=== PATIENT | female | born 1970 | race Hispanic/Latino ===

== ENCOUNTER 2019-05-01 09:15 | Emergency (ER) | payer OTHER, SELFPAY ==
--- NOTE | ~2019-05-01 | XR_ITS ---
EXAMINATION: XR chest 2V DATE: 05/01/2019 09:59 INDICATION: Cough, fever, and shortness of breath. TECHNIQUE: Frontal and lateral views of the chest were obtained. COMPARISON: Chest 2 views 01/06/2018 FINDINGS: Again seen is mild scarring at the lung apices. No pleural effusion or pneumothorax. The he art size is normal. IMPRESSION: 1. Stable mild scarring at the lung apices. Reviewed, dictated and finalized at location A. CLEANER
[2019-05-01 09:22] VITALS: BP 129/62; PULSE 89; RESP 18; TEMP 36.2; O2SAT 100
--- NOTE | 2019-05-01 10:33 | ED.URI ---
HPI - URI/Sore Throat General Chief Complaint: Upper Respiratory Infection Stated Complaint: fever/aches/back pain Time Seen by Provider: 05/01/19 09:25 Source: patient Mode of arrival: ambulatory Limitations: no limitations History of Present Illness HPI Narrative: Patient presents with chief complaint of 2 weeks of progressively worsening cough that is productive of green phlegm. Patient also reports intermittent fever and body aches. Patient states that her daughter was sick as well but her symptoms have resolved and she is improved. Patient states that she has been taking Claritin and NyQuil at home without resolution of her symptoms. Patient denies shortness of breath, chest pain, nausea, vomiting, diarrhea. Patient reports having diabetes but denies history of COPD or asthma. Patient states she did not receive a flu shot this year. Related Data Home Medications Medication Instructions Recorded Confirmed atorvastatin 40 mg PO DAILY 05/01/19 ezetimibe 10 mg PO DAILY 05/01/19 glimepiride 4 mg PO DAILY 05/01/19 lisinopril 5 mg PO DAILY 05/01/19 sitagliptin [Januvia] 100 mg PO DAILY 05/01/19 Allergies Allergy/AdvReac Type Severity Reaction Status Date / Time No Known Allergies Allergy Unverified 05/01/19 09:24 Review of Systems Review of Systems: Narrative: CONSTITUTIONAL: Reports fever, body aches Denies chills or sweats. EYES: Denies visual changes, redness, or discharge. ENT: Reports rhinorrhea, congestion, sore throat, denies otalgia. CARDIOVASCULAR: Denies chest pain, palpitations, or edema. RESPIRATORY: Reports cough denies dyspnea. GASTROINTESTINAL: Denies abdominal pain, nausea, vomiting, or diarrhea. GENITOURINARY: Denies dysuria or hematuria. SKIN: Denies rash or itching. MUSCULOSKELETAL: Denies back pain, joint pain, or myalgia. NEUROLOGIC: Denies headache, numbness, dizziness, or weakness. PSYCHIATRIC: Denies anxiety or depression. [facility] Past Medical History Medical History (Updated 05/01/19 @ 10:53 by Betsey Brewer PA-C) Diabetes Hypercholesteremia Social History Social History (Updated 05/01/19 @ 10:47 by Betsey Brewer PA-C) Smoking status: Never smoker Alcohol intake: never Substance use: never Exam Narrative: Exam Narrative: GENERAL: Well-appearing, well-nourished, and in no acute distress. HEAD: Normocephalic, atraumatic. EYES: PERRLA and EOMI. ENT: Nares clear, no rhinorrhea or epistaxis. Mucous membranes moist congested. Oropharynx without tonsillar hypertrophy exudate or other lesions. Bilateral TMs pearly xavier nonbulging. Hoarse voice. NECK: Supple. No adenopathy or masses. No carotid bruits or JVD CHEST: Clear to auscultation. No respiratory distress. No wheezes rales or rhonchi HEART: Regular rate and rhythm. No murmur heard. Normal peripheral pulses. EXTREMITIES: Normal range of motion. No edema. SKIN: Warm, dry, no rash. NEURO: No focal deficits. Alert and oriented x3. PSYCH: Normal mood and affect. Course Vital Signs Vital signs: Vital Signs Temperature 97.2 F L 05/01/19 09:22 Pulse Rate 89 05/01/19 09:22 Respiratory Rate 18 05/01/19 09:22 Blood Pressure 129/62 05/01/19 09:22 Pulse Oximetry 100 05/01/19 09:22 Temperature 97.2 F L 05/01/19 09:22 Pulse Rate 89 05/01/19 09:22 Respiratory Rate 18 05/01/19 09:22 Blood Pressure 129/62 05/01/19 09:22 Pulse Oximetry 100 05/01/19 09:22 MDM - URI/Sore Throat MDM Narrative Medical decision making narrative: Patient's flu, strep, chest x-ray was negative for any acute findings. Patient states she felt improved but then had symptoms represent 5-6 days ago with sneezing, tearing, hoarse voice, which is consistent with second viral illness with negative workup today. Patients vitals are stable. She does not have fever, dyspnea, or chest pain. There is no wheezing and she denies asthma, respiratoryillness, immunocompromised status, or COPD. There is no sinus tenderness or s
== END 2019-05-01 11:08 | disposition home or self-care (01) ==
PROVIDERS: Emergency Provider Family Medicine; PCP Physician Assistant
DX: J06.9 Acute upper respiratory infection, unspecified (principal); E11.9 Type 2 diabetes mellitus without complications; E78.00 Pure hypercholesterolemia, unspecified
CPT/HCPCS: 71046; 87081; 87804; 87880; 99283

== ENCOUNTER 2019-09-08 21:53 | Emergency (ER) | payer OTHER, SELFPAY ==
--- NOTE | ~2019-09-08 | XR_ITS ---
XR lumbar spine 2-3V 09/08/2019 23:35 Indication: Low back pain after recent fall Procedure: 3 views lumbar spine Comparison: No prior studies for comparison. Findings: Normal lumbar alignment. Vertebral body and disc heights are preserved. No evidence for spo ndylolisthesis. No acute fracture or traumatic malalignment. Pedicles intact. Impression: 1: No acute abnormality of the lumbar spine. Reviewed, dictated and finalized at location A. Impression: 1: No acute abnormality of the lumbar spine.
[2019-09-08 21:55] VITALS: BP 126/63; PULSE 93; RESP 19; TEMP 35.9; O2SAT 100
--- NOTE | 2019-09-08 22:07 | PC.NURSE ---
Pt denies hitting head or loc.
[2019-09-08] MEDS: KETOROLAC (*BKC) 60 MG/2 ML VIAL IM (23:12)
[2019-09-08 23:47] VITALS: RESP 18; O2SAT 99
--- NOTE | 2019-09-09 00:17 | ED.FALL ---
HPI - Fall General Chief Complaint: Fall Stated Complaint: FALL, BACK PAIN Time Seen by Provider: 09/08/19 23:36 History of Present Illness HPI Narrative: Patient is a 49-year-old female who presents ER with pain over her tailbone. She was mopping when she slipped on wet ground and fell onto her buttock. She has been able to ambulate. No numbness or tingling of her lower extremities or private parts. Went to make sure she was okay. Did not strike her head or lose consciousness. Related Data Home Medications Medication Instructions Recorded Confirmed atorvastatin 40 mg PO DAILY 05/01/19 09/08/19 glimepiride 4 mg PO DAILY 05/01/19 09/08/19 lisinopril 5 mg PO DAILY 05/01/19 calcium carbonate-vitamin D3 1 tablet PO DAILY 09/08/19 09/08/19 insulin glargine [Lantus Solostar 22 unit SUBCUT QID 09/08/19 09/08/19 U-100 Insulin] multivitamin [Daily-Benjamín] 1 tablet PO DAILY 09/08/19 09/08/19 Allergies Allergy/AdvReac Type Severity Reaction Status Date / Time No Known Allergies Allergy Verified 09/08/19 23:15 Review of Systems Constitutional: Constitutional: Denies chills, Denies fever(s) and Denies weakness Musculoskeletal: Musculoskeletal: Reports back pain, Denies joint swelling and Denies muscle cramps Neurologic: Denies syncope, Denies focal weakness and Denies numbness PMFSH Past Medical History Medical History (Updated 09/09/19 @ 00:22 by Barry Manzo MD) Diabetes Hypercholesteremia Surgical History Surgical History (Updated 09/09/19 @ 00:18 by Barry Manzo MD) No pertinent past surgical history Social History Social History (Updated 05/01/19 @ 10:47 by Betsey Brewer PA-C) Smoking status: Never smoker Alcohol intake: never Substance use: never Gender identity (if verbalized by the patient): Female Exam Narrative: Exam Narrative: GENERAL: Well-appearing, well-nourished, and in no acute distress. HEAD: Normocephalic, atraumatic. EXTREMITIES: Normal range of motion. No edema. Back: No midline tenderness of thoracic or lumbar spine. There is tenderness within the gluteal cleft near the tailbone. No visual evidence of trauma. SKIN: Warm, dry, no rash. NEURO: Alert and oriented x3. PSYCH: Normal mood and affect. Course Course Emergency Course: X-ray negative. Toradol for pain. Discharge home. Vital Signs Vital signs: Vital Signs Temperature 96.7 F L 09/08/19 21:55 Pulse Rate 93 09/08/19 21:55 Respiratory Rate 19 09/08/19 21:55 Blood Pressure 126/63 09/08/19 21:55 Pulse Oximetry 100 09/08/19 21:55 Temperature 96.7 F L 09/08/19 21:55 Pulse Rate 93 09/08/19 21:55 Respiratory Rate 18 09/08/19 23:47 Blood Pressure 126/63 09/08/19 21:55 Pulse Oximetry 99 09/08/19 23:47 MDM - Fall Lab Data Labs: UCG Bedside Result Negative Reference Range: Negative Imaging Data Radiologist's impression: ITS Impressions Lumbar Spine X-Ray 09/08/19 23:36 Impression: 1: No acute abnormality of the lumbar spine. Discharge Plan Discharge Clinical Impression: Contusion Patient Disposition: Home, Self-Care Condition: Stable Instructions: Contusion in Adults (ED) Additional Instructions: There is no fracture of your tailbone on x-ray. Return to the ER if you have increased pain in your back, you develop lower extremity weakness/numbness/paralysis, you have numbness or tingling in your private parts, or you are unable to control your ability to urinate/stool. Prescriptions: New ibuprofen 600 mg tablet 600 mg PO TID PRN (Reason: pain) Qty: 14 RF: 0 No Action atorvastatin 40 mg Tablet 40 mg PO DAILY RF: 0 glimepiride 4 mg Tablet 4 mg PO DAILY RF: 0 lisinopril 5 mg Tablet 5 mg PO DAILY RF: 0 multivitamin [Daily-Benjamín] Tablet 1 tablet PO DAILY RF: 0 Lantus Solostar U-100 Insulin 100 unit/mL (3 mL) insulin pen 22 unit SUBCUT QID RF: 0 calcium ca
[2019-09-09 00:48] VITALS: BP 100/50; PULSE 68; RESP 18; TEMP 36.6; O2SAT 100
== END 2019-09-09 00:50 | disposition home or self-care (01) ==
PROVIDERS: Emergency Provider Emergency Medicine; PCP Physician Assistant
DX: S30.0XXA Contusion of lower back and pelvis, initial encounter (principal); E11.9 Type 2 diabetes mellitus without complications; E78.00 Pure hypercholesterolemia, unspecified; Z79.4 Long term (current) use of insulin; W01.0XXA Fall on same level from slipping, tripping and stumbling without subsequent striking against object, initial encounter
CPT/HCPCS: 72100; 81025; 96372; 99283; J1885

== ENCOUNTER 2020-03-17 12:58 | Emergency (ER) | payer OTHER, SELFPAY ==
--- NOTE | ~2020-03-17 | XR_ITS ---
EXAMINATION: XR chest 1V portable INDICATION: Cough and back pain TECHNIQUE: Portable AP chest at 1440 hours COMPARISON: 05/01/2019 FINDINGS: There is a possible nodule in the right midlung zone. The left lung is clear. The cardiomed iastinal silhouette is normal. The visualized osseous structures are unremarkable. IMPRESSION: 1. Possible nodule of the right midlung zone. Further evaluation with CT of the chest is recommended. Reviewed, dictated and finalized at location A. 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
[2020-03-17 13:15] VITALS: BP 125/54; PULSE 78; RESP 18; TEMP 36.2; O2SAT 99
[2020-03-17 14:56] LABS: Add Urine Microscopic? YES; Appearance Urine Clear (Clear); Bilirubin Urine Negative (Negative); Blood Urine Negative (Negative); Color Urine Yellow (Yellow); Glucose Urine UA 3+ mg/dL (Negative); Ketones Urine Negative (Negative); Leukocyte Esterase Ur Negative LEU/UL (Negative); Mucus Urine Rare /lpf; Nitrate Urine Negative (Negative); Protein Urine Negative (Negative); RBC Urine 0-2 /hpf (0-2); Specific Grav Ur 1.018 (1.001-1.035); Squamous Epithelial Cell Urine Few /hpf (Few); Urobilinogen Urine Negative mg/dL (<2.0); WBC Urine 0-3 /hpf
--- NOTE | 2020-03-17 15:19 | ED.GENADULT ---
HPI - General Adult General Chief complaint: Back Pain/Injury Stated complaint: Back Pain, Body Sore Time Seen by Provider: 03/17/20 13:27 Source: patient Mode of arrival: ambulatory Limitations: no limitations History of Present Illness HPI narrative: Patient is a 49-year-old female who presents to emergency department for evaluation of URI symptoms that began over the weekend patient denies sick contacts nose congestion rhinorrhea cough with some mild discomfort to the right upper back patient denies vomiting diarrhea or other complaints has tried [id number] medications with minimal improvement is followed by Dr. Davis Cardona. Patient on arrival does not appear to be distressed Related Data Home Medications Medication Instructions Recorded Confirmed atorvastatin 40 mg PO DAILY 05/01/19 09/08/19 glimepiride 4 mg PO DAILY 05/01/19 09/08/19 lisinopril 5 mg PO DAILY 05/01/19 calcium carbonate-vitamin D3 1 tablet PO DAILY 09/08/19 09/08/19 insulin glargine [Lantus Solostar 22 unit SUBCUT QID 09/08/19 09/08/19 U-100 Insulin] multivitamin [Daily-Benjamín] 1 tablet PO DAILY 09/08/19 09/08/19 Allergies Allergy/AdvReac Type Severity Reaction Status Date / Time No Known Allergies Allergy Verified 03/17/20 13:26 Review of Systems Review of Systems: All systems reviewed & are unremarkable except as noted in HPI and below PMFSH Past Medical History Medical History Diabetes Hypercholesteremia Surgical History Surgical History No pertinent past surgical history Social History Social History Smoking status: Never smoker Alcohol intake: never Substance use: never Gender identity (if verbalized by the patient): Female Exam Narrative: Exam Narrative: GENERAL: Well-appearing, well-nourished, and in no acute distress. HEAD: Normocephalic, atraumatic. EYES: PERRLA and EOMI. ENT: Nares clear, no rhinorrhea or epistaxis. Mucous membranes moist. CHEST: Clear to auscultation. No respiratory distress. No wheezes rales or rhonchi HEART: Regular rate and rhythm. No murmur heard. Normal peripheral pulses. ABDOMEN: Soft, nontender, nondistended EXTREMITIES: Normal range of motion. No edema. SKIN: Warm, dry, no rash. NEURO: No focal deficits. Alert and oriented x3. Cranial nerves II through XII grossly intact PSYCH: Normal mood and affect. Course Course Emergency Course: Patient in the room no distress aware of case findings treatment plan diagnosis agreeing to follow-up as directed with primary care to obtain her COVID-19 results patient made aware that primary care is the person that can get her results and that she will not be able to with primary care assistance. Vital signs and ABCs intact and stable. Patient will be tested for Covid has been advised to self quarantine until she has received her results and was given reasons to return. Patient made aware of the nodule seen on chest x-ray and will follow with primary care to plan for CT imaging for further evaluation Vital Signs Vital signs: Vital Signs Temperature 97.2 F L 03/17/20 13:15 Pulse Rate 78 03/17/20 13:15 Respiratory Rate 18 03/17/20 13:15 Blood Pressure 125/54 L 03/17/20 13:15 Pulse Oximetry 99 03/17/20 13:15 Temperature 97.2 F L 03/17/20 13:15 Pulse Rate 78 03/17/20 13:15 Respiratory Rate 18 03/17/20 13:15 Blood Pressure 125/54 L 03/17/20 13:15 Pulse Oximetry 99 03/17/20 13:15 Medical Decision Making [facility] Narrative Medical decision making narrative: Patient with acute onset URI symptoms no pneumonia vital signs stable and intact no hypoxemia will be discharged after Covid testing for follow-up with primary care Vital Signs Vital Signs: Vital Signs Temperature 97.2 F L 03/17/20 13:15 Pulse Rate 78 03/17/20 13:15 Respiratory Rate 18
[2020-03-17 16:05] VITALS: BP 137/58; PULSE 80; RESP 19; O2SAT 100
[2020-03-17 22:46] LABS: SARS-CoV-2 RNA PCR Positive
== END 2020-03-17 16:09 | disposition home or self-care (01) ==
PROVIDERS: Emergency Medicine Emergency Medical Services; Emergency Provider Emergency Medicine; PCP Physician Assistant
DX: U07.1 COVID-19 (principal); J06.9 Acute upper respiratory infection, unspecified; R91.1 Solitary pulmonary nodule; E78.00 Pure hypercholesterolemia, unspecified; E11.9 Type 2 diabetes mellitus without complications; Z79.4 Long term (current) use of insulin
CPT/HCPCS: 71045; 81001; 99283; C9803; U0003; U0005

== ENCOUNTER 2021-03-24 13:53 | Emergency (ER) | payer OTHER, SELFPAY ==
--- NOTE | ~2021-03-24 | CT_ITS ---
EXAMINATION: CT abdomen pelvis wo con EXAM DATE: 03/24/2021 16:57 INDICATION: Diffuse back pain, suprapubic pain, hematuria. TECHNIQUE: Spiral CT of the abdomen and pelvis was performed without contrast. Axial, coronal and s agittal images of the abdomen and pelvis were reviewed. The dose-length product (DLP) for this exami nation was 890.91 mGy-cm. The exposure was tailored according to patient size (auto mA exposure cont rol), and iterative reconstruction (ASIR) was used as additional dose reduction technique. There is no prior study for comparison. FINDINGS: The liver, spleen, adrenal glands and pancreas are unremarkable. Gallbladder is unremarkab le. No biliary obstruction. There is no nephrolithiasis or hydronephrosis. There is a fluid density left renal 2 cm lesion likely cyst. The uterus is unremarkable. The bladder is unremarkable. Ther e is no retroperitoneal or pelvic lymphadenopathy. Small to moderate-sized umbilical fat-containing hernias. The appendix is normal. There is mild scattered colonic diverticulosis. There is no adjacent inflamm atory change to suggest diverticulitis. The stomach and small bowel are unremarkable. There is expec jared amount of colonic stool. No free intraperitoneal gas. The heart is normal in size. There are no pericardial or pleural effusions. The lung bases are unremarkable. There are no osteoblastic or osteolytic lesions identified. IMPRESSION: 1. No acute intra-abdominal findings. 2. Small to moderate-sized umbilical fat-containing hernia. 3. Mild scattered colonic diverticulosis. Reviewed, dictated and finalized at location B. 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
[2021-03-24 13:55] VITALS: BP 135/63; PULSE 78; RESP 14; TEMP 36.8; O2SAT 99
--- NOTE | 2021-03-24 15:20 | ED.FEMALEGU ---
HPI - Female Genitourinary General Chief complaint: Urogenital-Female Stated complaint: UTI Time Seen by Provider: 03/24/21 15:06 Source: patient Mode of arrival: ambulatory Limitations: no limitations History of Present Illness HPI Narrative: 50-year-old female with a history of DM presents to the ED with a 2-day history of mild dysuria, urinary frequency, and vulvar pruritus as well as a 5 to 6-day history of malaise fatigue, chills, decreased appetite, and bilateral thoracic back pain. Symptoms began shortly after starting Farxiga for DM. She is concerned about the possibility of UTI. She has also noticed a sore to the left vulvar region as well. She does have a history of genital herpes however manages this with daily acyclovir. No recent history of documented fever, vomiting, or gross hematuria. Related Data Home Medications Medication Instructions Recorded Confirmed atorvastatin 40 mg PO DAILY 05/01/19 09/08/19 glimepiride 4 mg PO DAILY 05/01/19 09/08/19 lisinopril 5 mg PO DAILY 05/01/19 calcium carbonate-vitamin D3 1 tablet PO DAILY 09/08/19 09/08/19 insulin glargine [Lantus Solostar 22 unit SUBCUT QID 09/08/19 09/08/19 U-100 Insulin] multivitamin [Daily-Benjamín] 1 tablet PO DAILY 09/08/19 09/08/19 Allergies Allergy/AdvReac Type Severity Reaction Status Date / Time No Known Allergies Allergy Verified 03/24/21 13:58 Review of Systems Review of Systems: CONSTITUTIONAL: Malaise/ fatigue. No fever. EYES: Denies visual changes, redness, or discharge. ENT: Denies rhinorrhea, congestion, sore throat, or otalgia. CARDIOVASCULAR: Denies chest pain, palpitations, or edema. RESPIRATORY: Denies cough or dyspnea. GASTROINTESTINAL: Denies abdominal pain, nausea, vomiting, or diarrhea. GENITOURINARY: Dysuria, urinary frequency, vulvar pruritus. Vulvar lesion SKIN: Denies rash or itching. MUSCULOSKELETAL: Thoracic back pain NEUROLOGIC: Denies headache, numbness, dizziness, or weakness. PSYCHIATRIC: Denies anxiety or depression. All systems reviewed & are unremarkable except as noted in HPI and below PMFSH Past Medical History Medical History Diabetes Hypercholesteremia Surgical History Surgical History No pertinent past surgical history Social History Social History Smoking status: Never smoker Alcohol intake: never Substance use: never Gender identity (if verbalized by the patient): Female Exam Narrative: GENERAL: Overweight, well-appearing female HEAD: Normocephalic, atraumatic. EYES: PERRLA and EOMI. ENT: Nares clear, no rhinorrhea or epistaxis. Mucous membranes moist. Oropharynx without tonsillar hypertrophy exudate or other lesions. Bilateral TMs pearly xavier nonbulging NECK: Supple. No adenopathy or masses. No carotid bruits or JVD CHEST: Clear to auscultation. No respiratory distress. No wheezes rales or rhonchi HEART: Regular rate and rhythm. No murmur heard. Normal peripheral pulses. ABDOMEN: Very minimal suprapubic tenderness palpation. No CVA tenderness. No guarding, rigidity, or rebound tenderness. EXTREMITIES: Normal range of motion. No edema. SKIN: Warm, dry, no rash. NEURO: No focal deficits. Alert and oriented x3. PSYCH: Normal mood and affect. Course Course Emergency Course: Patient presents to the ED with thoracic back pain, suprapubic abdominal pain, vulvar pruritus, and mild dysuria. She was concerned about the possibility of UTI secondary to Farxiga use. Urinalysis does show yeast but is not in keeping with infection. As a result CT was obtained as there was no clear explanation for her symptoms. This was also unremarkable. Suspect back pain is musculoskeletal. She was given Diflucan in the ED. She is to follow-up with PCP for further evaluation. Vital Signs Vital signs: Vital Sign
[2021-03-24 15:32] LABS: Add Urine Microscopic? YES; Amorphous Sediment Urine Few; Appearance Urine Cloudy (Clear); Bilirubin Urine Negative (Negative); Blood Urine Negative (Negative); Budding Yeast Urine Present /hpf; Color Urine Yellow (Yellow); Glucose Urine UA 3+ mg/dL (Negative); Ketones Urine Negative (Negative); Leukocyte Esterase Ur Negative LEU/UL (Negative); Nitrate Urine Negative (Negative); Protein Urine Negative (Negative); Specific Grav Ur 1.025 (1.001-1.035); Squamous Epithelial Cell Urine Few /hpf (Few); Urobilinogen Urine Negative mg/dL (<2.0); WBC Urine 0-3 /hpf
[2021-03-24] MEDS: FLUCONAZOLE 150 MG TABLET PO (16:41)
== END 2021-03-24 17:39 | disposition home or self-care (01) ==
PROVIDERS: Emergency Medicine; Emergency Provider Emergency Medicine; PCP Physician Assistant
DX: B37.3 Candidiasis of vulva and vagina (principal); M54.6 Pain in thoracic spine; E11.9 Type 2 diabetes mellitus without complications; E78.00 Pure hypercholesterolemia, unspecified; Z79.4 Long term (current) use of insulin; Z79.84 Long term (current) use of oral hypoglycemic drugs; K42.9 Umbilical hernia without obstruction or gangrene; K57.90 Diverticulosis of intestine, part unspecified, without perforation or abscess without bleeding
CPT/HCPCS: 74176; 81001; 81025; 99284; A9270

== ENCOUNTER 2021-10-31 21:57 | Inpatient (IN) | payer OTHER, SELFPAY ==
--- NOTE | ~2021-10-31 | XR_ITS ---
EXAMINATION: XR surgery orthopedic DATE: 11/01/2021 18:00 CDT INDICATION: ORIF RT ANKLE . TECHNIQUE: 3 fluoroscopic images of the right ankle were obtained during right ankle ORIF performed b y the surgeon. I was not present in the operating room. Fluoroscopy exposure time was 116.3 seconds. Cumulative dose was 5.96 mGy. COMPARISON: 10/31/2021 FINDINGS: Intramedullary jae fixation of the fibula 2 distal interlocking screws. Screw fixation of the medial malleolus and posterior malleolus. Internal fixation of the syndesmosis. Slight anterior angulation o f the distal fibular fragment. IMPRESSION: Fluoroscopic documentation of right ankle ORIF. Please refer to the operative note for complete proce dural details . Reviewed, dictated and finalized at location K. IMPRESSION: Fluoroscopic documentation of right ankle ORIF. Please refer to the operative n ote for complete procedural details .
--- NOTE | ~2021-10-31 | XR_ITS ---
EXAM: XR ankle RT 2V DATE: 10/31/2021 22:34 HISTORY: pain status post fall . COMPARISON: None available. FINDINGS: Subjectively decreased mineralization. Transverse, posteriorly displaced fracture of the m edial malleolus. Oblique, posteriorly displaced fracture of the lateral malleolus. Posteriorly displa ander fracture of the posterior malleolus. Posterior dislocation of the talus relative to the tibial pl afond. Soft tissue swelling about the ankle. IMPRESSION: Posterior tibiotalar dislocation. Trimalleolar ankle fracture. Reviewed, dictated and finalized at location K.
--- NOTE | ~2021-10-31 | XR_ITS ---
EXAMINATION: XR ankle RT min 3V DATE: 10/31/2021 23:41 INDICATION: Right ankle fracture status post reduction. TECHNIQUE: 3 views of right ankle were obtained. COMPARISON: Right ankle radiographs 10/31/2021 FINDINGS: There is a transverse fracture of medial malleolus. The distal fracture fragment demonstrat es 3 mm distraction. There is a coronal fracture of posterior malleolus with 2 mm step-off at the art icular surface. There is an oblique fracture of distal fibula with medial aspect of the fracture line to the level of the tibial plafond. The distal fracture fragment demonstrates 2 mm posterior displac ement. There is normal alignment at the ankle mortise. There is mild osteoarthritis of talonavicular joint. Cast material is noted. IMPRESSION: 1. Trimalleolar ankle fracture with improvement in alignment. Reviewed, dictated and finalized at location A.
--- NOTE | ~2021-10-31 | XR_ITS ---
EXAMINATION: XR knee RT 3V DATE: 10/31/2021 23:41 INDICATION: Right knee pain. TECHNIQUE: 3 views of right knee were obtained. COMPARISON: None. FINDINGS: Bone alignment is normal. No fracture. There is mild osteoarthritis of lateral and patellof emoral compartments characterized by tiny osteophytes. No joint space narrowing. No knee joint effusi on. IMPRESSION: 1. Mild right knee osteoarthritis. Reviewed, dictated and finalized at location A.
[2021-10-31 21:58] VITALS: RESP 12
[2021-10-31 22:03] VITALS: BP 119/54; PULSE 73; RESP 18; TEMP 36.9; O2SAT 98
[2021-10-31] MEDS: HYDROmorphone HCL INJ (*CRX) 1 MG/ML SYR IV PUSH ×2 (22:22→23:17)
[2021-10-31] MEDS: ONDANSETRON INJ 4 MG/2 ML VIAL IV PUSH (22:22)
--- NOTE | 2021-10-31 23:58 | ED.GENADULT ---
HPI - General Adult General Chief complaint: Extremity Injury, Lower Stated complaint: ANKLE INJURY WITH DEFORMITY Time Seen by Provider: 10/31/21 22:10 History of Present Illness HPI narrative: Patient 51-year-old female who presents the emergency department with chief complaint of right ankle pain. 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 The patient reports to an obvious deformity of her right ankle. Patient reports she has had a previous injury to her right upper extremity and just had the hardware removed fairly recently. The patient states that she had no loss of consciousness denies head injury reports no other significant past medical history other than hypertension. Related Data Home Medications Medication Instructions Recorded Confirmed atorvastatin 40 mg tablet 40 mg PO DAILY 05/01/19 09/08/19 glimepiride 4 mg tablet 4 mg PO DAILY 05/01/19 09/08/19 lisinopril 5 mg tablet 5 mg PO DAILY 05/01/19 calcium carbonate 600 mg-vitamin 1 tablet PO DAILY 09/08/19 09/08/19 D3 20 mcg (800 unit) tablet insulin glargine 100 unit/mL (3 22 unit subcut QID 09/08/19 09/08/19 mL) subcutaneous pen (Lantus Solostar U-100 Insulin) multivitamin (Daily-Benjamín tablet) 1 tablet PO DAILY 09/08/19 09/08/19 Allergies Allergy/AdvReac Type Severity Reaction Status Date / Time No Known Allergies Allergy Verified 03/24/21 13:58 Review of Systems Review of Systems: A 10 system review of systems was completed on the patient and is negative except for what is stated in the HPI. Nursing and ancillary documentation was reviewed. PMFSH Past Medical History Medical History Diabetes Hypercholesteremia Surgical History Surgical History No pertinent past surgical history Social History Social History Smoking status: Never smoker Alcohol intake: never Substance use: never Gender identity (if verbalized by the patient): Female Exam Narrative: GENERAL: Well-appearing, well-nourished, and in no acute distress. HEAD: Normocephalic, atraumatic. EYES: PERRLA and EOMI. ENT: Nares clear, no rhinorrhea or epistaxis. Mucous membranes moist. NECK: Supple. CHEST: Clear to auscultation. No respiratory distress. HEART: Regular rate and rhythm. No murmur heard. Normal peripheral pulses. ABDOMEN: Soft, nontender, nondistended, normal active bowel sounds. EXTREMITIES: Obvious deformity of the right ankle. No edema. SKIN: Warm, dry, no rash. NEURO: No focal deficits. Alert and oriented x3. PSYCH: Normal mood and affect. Course Course Emergency Course: The fracture dislocation was reduced by me under direct manipulation. Patient tolerated procedure well. Splint was applied to the posterior short leg with stirrups with me directly involved. The case was discussed with Dr. Mac who is on-call for orthopedic surgery. The patient will be admitted for surgical intervention Vital Signs Vital signs: Vital Signs Respiratory Rate 12 10/31/21 21:58 Temperature 36.9 C 10/31/21 22:03 Pulse Rate 73 10/31/21 22:03 Respiratory Rate 18 10/31/21 22:03 Blood Pressure 119/54 L 10/31/21 22:03 Pulse Oximetry 98 10/31/21 22:03 Procedures Orthopedic Joint Reduction Joint #1: Orthopedic Joint Reduction Date: 11/01/21 Orthopedic Joint Reduction Time: 00:38 Time Out Performed: Yes Side: right Joint Reduction Location: ankle Analgesia: none Pre-Procedure Neuro Vascular Exam: normal Local Anesthesia: none Technique used: direct manipulation Post-reduction neuro exam: intact Post-reduction vascular: intact Post Reduction X-Ray Obtained: Yes Post Reduction X-Ray Results: reduced Splint Applied: Yes
[2021-11-01] VITALS (14 sets, daily range): BP systolic 98–127; BP diastolic 51–73; PULSE 71–92; RESP 10–18; TEMP 36.6–37.2; O2SAT 96–100; BMI 35.4
[2021-11-01 01:01] LABS: Basophils Percent Auto 0.4 % (0.2-1.2); Eosinophils Percent Auto 0.2 % (0-4.4); Hematocrit 41.4 % (37.0-47.0); Hemoglobin 14.1 g/dL (12.0-15.0); Immature Granulocyte Absolute 0.05 K/mm3 (0.00-0.031); Immature Granulocyte Percent A 0.5 % (0-0.5); Lymphocytes Absolute Auto 1.82 K/mm3 (0.9-3.2); Lymphocytes Percent Auto 18.2 % (18.3-44.2); Mean Corpuscular HGB Conc 34.1 g/dl (32-36); Mean Corpuscular Hemoglobin 33.9 pg (26-34); Mean Corpuscular Volume 99.5 fl (80-100); Mean Platelet Volume 11.9 fl (7.4-10.4); Monocytes Absolute Auto 0.5 K/mm3 (0.1-0.6); Neutrophils Absolute Auto 7.6 K/mm3 (1.3-6.7); Neutrophils Percent Auto 75.7 % (45.5-73.1); Platelet Count Result 204 k/mm3 (150-375); Red Blood Count 4.16 M/mm3 (4.2-5.4); Red Cell Distribution Width 12.4 % (11.5-14.5)
[2021-11-01 01:06] LABS: SARS-CoV-2 RNA PCR Negative
[2021-11-01 01:11] LABS: Alanine Aminotransferase 19 U/L (6-35); Albumin Level 4.2 g/dL (3.5-5.1); Alkaline Phosphatase 105 U/L (38-126); Anion Gap 2 mmol/L (8-16); Aspartate Amino Transferase 23 U/L (14-36); Bilirubin,Total 0.4 mg/dL (0.2-1.3); Blood Urea Nitrogen 19 mg/dL (7-17); Calcium 8.7 mg/dL (8.4-10.2); Carbon Dioxide 27 mmol/L (22-30); Chloride 105 mmol/L (98-107); Estimated Glomerular Filt Rate > 60; Glucose 249 mg/dL (65-110); Potassium 3.6 mmol/L (3.4-5.0); Sodium 134 mmol/L (137-145)
[2021-11-01 01:12] LABS: INR 1.1; Prothrombin Time 13.8 Seconds (11.1-14.7)
[2021-11-01 01:13] LABS: Partial Thromboplastin Time 30.5 SECONDS (22.3-36.8)
[2021-11-01] MEDS: HYDROmorphone HCL INJ (*CRX) 1 MG/ML SYR 0.5 MG IV PUSH ×4 (01:29→14:50)
--- NOTE | 2021-11-01 02:04 | ADMGEN ---
This patient, Marleen Khanna, was admitted to Medical Room 344-01. Patient/family oriented to hospital policies and general routines including ID bracelet, bed and alarms, visiting hours, pain management, procedures, bathroom and other care routines, personal items, smoking policy, room service/diet, and visiting hours. Information on how to activate the Rapid Response Team has been discussed. Patient/Family are encouraged to report perceived risks to care and to ask questions if they do not understand what they are told or what they should do.
[2021-11-01 02:16] LABS: Bacteria Urine Trace /hpf; Mucus Urine Rare /lpf; RBC Urine 0-2 /hpf (0-2); Squamous Epithelial Cell Urine Rare /hpf (Few)
[2021-11-01 02:17] LABS: Appearance Urine Clear (Clear); Bilirubin Urine Negative (Negative); Blood Urine Negative (Negative); Color Urine Yellow (Yellow); Glucose Urine UA 2+ mg/dL (Negative); Ketones Urine Negative (Negative); Leukocyte Esterase Ur Negative LEU/UL (Negative); Nitrate Urine Negative (Negative); Protein Urine Negative (Negative); Specific Grav Ur 1.015 (1.001-1.035); Urobilinogen Urine 0.2 mg/dL (<2.0)
[2021-11-01 02:20] LABS: Add Urine Microscopic? YES
[2021-11-01] MEDS: SODIUM CHLORIDE 0.9% IV 1,000 ML 125 ML IV CONT ×2 (04:42→14:52)
[2021-11-01 07:58] LABS: Glucose Point of Care 210 mg/dl (65-105)
--- NOTE | 2021-11-01 08:00 | PM.IMHP ---
H&P: HPI History of Present Illness Date/Time: 11/01/21 08:00 Chief Complaint: Right ankle fracture Narrative: 51-year-old woman slipped and fell last night sustaining right ankle fracture dislocation. Patient admitted through the emergency room after close reduction and splinting. Patient awake and alert this morning. Complains of pain right ankle. Denies any other injury. Denies numbness or tingling. Denies any prior problems with the ankle. She is recently status post hardware removal from a right elbow fracture which was treated at [facility]. Review of Systems Constitutional: Constitutional: Denies fever(s) Eyes: Eyes: Denies blurry vision ENT: Reports Normal hearing present Cardiovascular: Cardiovascular: Denies chest pain and Denies dyspnea Respiratory: Respiratory: Denies dyspnea and Denies wheezing Gastrointestinal: Gastrointestinal: Denies abdominal pain Genitourinary: Genitourinary: Denies urinary urgency Musculoskeletal: Musculoskeletal: Reports as per HPI and Denies numbness Integumentary/Breasts: Skin/Breast: Denies changing lesions and Denies sores Neurologic: Reports Normal hearing present, Denies behavioral changes, Denies confusion, Denies numbness and Denies convulsions Psychiatric: Psychiatric: Denies behavioral changes, Denies confusion and Denies hallucinations Endocrine: Endocrine: Denies heat intolerance Hematologic/Lymphatic: Hematologic/Lymphatic: Denies easy bleeding Allergic/Immunologic: Allergic/Immunologic: Denies wheezing PMFSH Past Medical History Medical History (Updated 11/01/21 @ 08:04 by Justin Mac MD) Diabetes Elbow fracture, right Hypercholesteremia Surgical History Surgical History (Updated 11/01/21 @ 08:02 by Justin Mac MD) No pertinent past surgical history Status post hardware removal Family History Family History Mother Diabetes mellitus Social History Social History Smoking status: Never smoker Alcohol intake: never Substance use: never Gender identity (if verbalized by the patient): Female Spiritual care concerns: No Meds Home Medications and Allergies Home Medications Medication Instructions Recorded Confirmed Type glimepiride 4 mg tablet 4 mg PO BID 05/01/19 11/01/21 History lisinopril 5 mg tablet 5 mg PO DAILY 05/01/19 11/01/21 History calcium carbonate 600 mg-vitamin 1 tablet PO BID 09/08/19 11/01/21 History D3 20 mcg (800 unit) tablet insulin glargine 100 unit/mL (3 22 unit subcut HS 09/08/19 11/01/21 History mL) subcutaneous pen (Lantus Solostar U-100 Insulin) multivitamin (Daily-Benjamín tablet) 1 tablet PO DAILY 09/08/19 11/01/21 History acyclovir 800 mg tablet 800 mg PO DAILY 11/01/21 11/01/21 History dapagliflozin 10 mg tablet 10 mg PO DAILY 11/01/21 11/01/21 History (Farxiga) pioglitazone 45 mg tablet 45 mg PO DAILY 11/01/21 11/01/21 History sitagliptin 100 mg tablet (Januvia) 100 mg PO DAILY 11/01/21 11/01/21 History Allergies Allergy/AdvReac Type Severity Reaction Status Date / Time No Known Allergies Allergy Verified 03/24/21 13:58 Vital Signs Vital Signs - 24 hr 10/31/21 21:58 10/31/21 22:03 11/01/21 03:27 Temperature 98.4 F Pulse Rate 73 73 Respiratory Rate 12 18 18 Blood Pressure 119/54 L Pulse Oximetry 98 98 Oxygen Delivery Room Air 11/01/21 06:00 Temperature 97.8 F Pulse Rate 90 Respiratory Rate 16 Blood Pressure 121/61 Pulse Oximetry 96 Oxygen Delivery Exam Const: General: comfortable; No acute distress Resp: Effort & Inspection: normal respiratory effort and no audible wheezes Extrem: Right lower extremity: lower leg ( Negative Homans sign), ankle Details: tenderness Location: of the lateral malleolus, of the medial malleolus and anteriorly and foot Details: vascular exam Details: dorsalis pedis pulse present a
[2021-11-01] MEDS: IBUPROFEN IV 400 MG in SODIUM CHLORIDE 0.9% IV 100 ML 208 MG IVPB (11:12)
[2021-11-01 11:46] LABS: Glucose Point of Care 181 mg/dl (65-105)
--- NOTE | 2021-11-01 15:25 | WPDHPUPDATE1 ---
History and Physical Update Update Date/Time: 11/01/21 15:25 History and Physical has been reviewed, including an updated exam of the patient. There are NO changes in the patient's condition. Risks, benefits, and alternatives have been discussed and questions answered. Patient agrees to proceed with procedure.
--- NOTE | 2021-11-01 15:43 | ECG_ITS ---
Measurements Intervals [place] Rate: 77 P: 51 PA: 141 QRS: 31 QRSD: 94 T: 22 QT: 365 QTc: 414 Interpretive Statements SINUS RHYTHM LOW QRS VOLTAGE IN PRECORDIAL LEADS [QRS DEFLECTION < 1.0 mV IN CHEST LEADS] NO PREVIOUS ECG AVAILABLE FOR COMPARISON Electronically Signed On 11-01-2021 20:02:17 CDT by Carmela Walker M.D.
--- NOTE | 2021-11-01 16:30 | PC.NURSE ---
Patient off unit to surgery.
[2021-11-01 16:34] LABS: Glucose Point of Care 105 mg/dl (65-105)
--- NOTE | 2021-11-01 17:15 | WPDANESEPPF ---
Anes - Initial Pre Proc Eval Procedure: Operation Date: 11/01/21 16:30 Proposed Procedures p Open Reduction Internal Fixation Right Ankle Fracture(Right) - Justin Mac MD Date/Time: 11/01/21 17:15 Surgeon: Justin Mac MD Pre Op Diagnosis: Right Ankle Trimalleolar Fracture Patient Data Age: 51 Gender: F Height: 1.6 m Weight: 90.8 kg Last Vital Signs Temp 36.6 C 11/01/21 14:00 Pulse 84 11/01/21 14:00 Resp 18 11/01/21 14:00 BP 116/51 L 11/01/21 14:00 Pulse Ox 96 11/01/21 14:00 O2 Del Method Room Air 11/01/21 08:00 Allergies Allergy/AdvReac Type Severity Reaction Status Date / Time No Known Allergies Allergy Verified 11/01/21 16:45 Home Medications Medication Instructions Recorded Confirmed Type glimepiride 4 mg tablet 4 mg PO BID 05/01/19 11/01/21 History lisinopril 5 mg tablet 5 mg PO DAILY 05/01/19 11/01/21 History calcium carbonate 600 mg-vitamin 1 tablet PO BID 09/08/19 11/01/21 History D3 20 mcg (800 unit) tablet insulin glargine 100 unit/mL (3 22 unit subcut HS 09/08/19 11/01/21 History mL) subcutaneous pen (Lantus Solostar U-100 Insulin) multivitamin (Daily-Benjamín tablet) 1 tablet PO DAILY 09/08/19 11/01/21 History acyclovir 800 mg tablet 800 mg PO DAILY 11/01/21 11/01/21 History dapagliflozin 10 mg tablet 10 mg PO DAILY 11/01/21 11/01/21 History (Farxiga) pioglitazone 45 mg tablet 45 mg PO DAILY 11/01/21 11/01/21 History sitagliptin 100 mg tablet (Januvia) 100 mg PO DAILY 11/01/21 11/01/21 History Laboratory Tests 11/01/21 11/01/21 11/01/21 00:23 00:56 00:56 WBC 10.0 K/mm3 K/mm3 (4.5-10.0) RBC 4.16 M/mm3 L M/mm3 (4.2-5.4) Hgb 14.1 g/dL g/dL (12.0-15.0) Hct 41.4 % % (37.0-47.0) MCV 99.5 fl fl (80-100) MCH 33.9 pg pg (26-34) MCHC 34.1 g/dl g/dl (32-36) RDW 12.4 % % (11.5-14.5) Plt Count 204 k/mm3 k/mm3 (150-375) MPV 11.9 fl H fl (7.4-10.4) Immature Gran % (Auto) 0.5 % % (0-0.5) Neut % (Auto) 75.7 % H % (45.5-73.1) Lymph % (Auto) 18.2 % L % (18.3-44.2) [place] % (Auto) 5.0 % % (2.6-8.5) Eos % (Auto) 0.2 % % (0-4.4) Baso % (Auto) 0.4 % % (0.2-1.2) Lymph # (Auto) 1.82 K/mm3 K/mm3 (0.9-3.2) [place] # (Auto) 0.5 K/mm3 K/mm3 (0.1-0.6) Eos # (Auto) 0.0 K/mm3 K/mm3 (0-0.3) Baso # (Auto) 0.0 K/mm3 K/mm3 (0.0-0.1) Abs Immat Gran (auto) 0.05 K/mm3 H K/mm3 (0.00-0.031) Absolute Neuts (auto) 7.6 K/mm3 H K/mm3 (1.3-6.7) Absolute Nucleated RBC 0.0 K/mm3 K/mm3 (0.0-0.012) Nucleated RBC % 0.0 % % (0.0-0.2) PT 13.8 Seconds Seconds (11.1-14.7) INR 1.1 APTT 30.5 SECONDS SECONDS (22.3-36.8) Sodium Potassium Chloride Carbon Dioxide Anion Gap BUN Creatinine Estim Creat Clear Calc Estimated GFR Glucose POC Capillary Glucose Calcium Total Bilirubin AST ALT Alkaline Phosphatase Total Protein Albumin Urine Color Urine Appearance Urine pH Ur Specific [place] Urine Protein Urine Glucose (UA) Urine Ketones Ur Blood (Man) Urine Nitrate Urine Bilirubin Urine Urobilinogen Leukocyte Esterase Rfl Urine RBC Urine WBC Ur Squamous Epith Cells Urine Bacteria Urine Mucus SARS-CoV-2 RNA (RT-PCR) Negative 11/01/21 11/01/21 11/01/21 00:56 01:45 07:55 WBC RBC Hgb Hct MCV
[2021-11-01] MEDS: LACTATED RINGERS 1,000 ML 30 ML IV CONT ×2 (17:30→19:34)
[2021-11-01] MEDS: ceFAZolin 2 GM/D5W 50 ML 2 GM/50 ML BAG IVPB (18:09)
--- NOTE | 2021-11-01 19:51 | W.PM.PROC2 ---
Procedure Note - Detailed Date of Procedure 11/01/21 Pre-op Diagnosis Right Ankle Trimalleolar Fracture Post-op Diagnosis Same Procedure Performed open reduction internal fixation right ankle trimalleolar fracture including posterior malleolus Surgeon Justin Mac MD Scientific Manager 1st office support assistant Anesthesia General Indications 51-year-old woman who fell and sustained a right ankle fracture dislocation. Trimalleolar fracture pattern identified on emergency room radiographs. Close reduction performed in the emergency room. Patient taken now urgently to the operating room for stabilization and fixation. Description of Procedure Patient identified in the preoperative holding. Informed consent given. Operative extremity marked. Patient received intravenous antibiotics. Patient brought to the operating room where underwent general anesthetic by anesthesia team. Positioned supine on operating room table. Time-out performed confirming the patient, site of the surgery and the plan. Lower extremity prepped and draped in the usual sterile surgical fashion using ChloraPrep skin solution. Foot and ankle exsanguinated and thigh tourniquet inflated to 250 mmHg. Fluoroscopy used and closed reduction the fracture performed. Fluoroscopic guidance to start entry point distal to the fibula with a 15 blade knife. Blunt dissection of the tip of the fibula guide pin placed through the distal fibula across the fracture into the proximal fibula. Confirmed with image intensification. Distal reaming with a 6.3 mm Reamer performed distal to the fracture. More proximal reaming with the 3.3 mm Reamer. Nail assembled on the back table. Guide jae removed and the nail inserted to the correct depth. Proximal locking Oniel deployed and verified with image intensification. Distal locking of the nail performed with stab incisions and blunt dissection down to the bone and 2.7 mm locking screws. Longitudinal incision made over the medial malleolar fracture with a 15 blade knife. Hemostasis controlled electrocautery. Periosteum incised in line with skin incision. Medial malleolus fracture reduced after irrigation and fixation achieved with a 4.0 mm cannulated screw. Image intensification confirm reduction the fractures and placement of the hardware. Instability of the syndesmosis noted fluoroscopic exam and syndesmosis repair indicated. Fibula was reduced in the incisura and verified with image intensification. Drill placed from the lateral fibula through the nail into the tibia. Tight rope assembly device then passed through the hole and deployed on the medial tibia. With the ankle in a neutral position the lateral washer then tightened. with use of fluoroscopy anterior drawer and posterior drawer testing of the ankle performed. Instability the posterior malleolus fracture noted. Fixation indicated. Fracture reduced and provisionally pinned. Fixation achieved with an anterior to posterior cannulated screw. Guide pin placed and confirmed with image intensification. Measurement, drill and placement of a cannulated screw with good fixation. Image intensification confirmed final alignment and placement of the hardware. Wounds thoroughly irrigated with antibiotic solution. Wounds closed with 3-0 Monocryl interrupted suture. Sterile dressing applied. The patient was then woken from anesthesia, extubated and taken to the recovery room in stable condition. All sponge, needle, instrument counts were correct at the end of the case. Implants Arthrex fibula locked nail with 2.7 mm locking screws distal and tight rope system. Cannulated 4.0 mm screws x2 Estimated Blood Loss 10 Tourniquet Time 0 Urine Output 0 Drains No Packing No Pathology None sent Complications None Condition Stable Disposition PACU
[2021-11-01 19:57] LABS: Glucose Point of Care 105 mg/dl (65-105)
[2021-11-01] MEDS: fentaNYL CITRATE INJ (*CRX) 100 MCG/2 ML VIAL 25 MCG IV PUSH ×4 (20:07→20:20)
[2021-11-01 20:48] LABS: Glucose Point of Care 122 mg/dl (65-105)
[2021-11-01] MEDS: FAMOTIDINE 20 MG TABLET PO (21:23)
[2021-11-01] MEDS: KCL 20 MEQ/D5/0.45% SOD CHL 1,000 ML 80 ML IV CONT (21:23)
[2021-11-01] MEDS: INSULIN GLARGINE (*BKC) 100 UNITS/ML 22 UNITS SUB-Q (22:16)
[2021-11-02] MEDS: MORPHINE SULFATE (*CRX) 4 MG/ML INJ 3 MG IV PUSH ×4 (00:10→11:30)
[2021-11-02 02:24] VITALS: BP 105/58; PULSE 68; RESP 14; TEMP 36.9; O2SAT 100
[2021-11-02 05:44] VITALS: BP 134/88; PULSE 66; RESP 16; TEMP 36.7; O2SAT 100
[2021-11-02 05:47] VITALS: O2SAT 98
[2021-11-02 06:15] LABS: Basophils Percent Auto 0.5 % (0.2-1.2); Eosinophils Absolute Auto 0.1 K/mm3 (0-0.3); Eosinophils Percent Auto 0.9 % (0-4.4); Hematocrit 39.5 % (37.0-47.0); Hemoglobin 12.8 g/dL (12.0-15.0); Immature Granulocyte Absolute 0.03 K/mm3 (0.00-0.031); Immature Granulocyte Percent A 0.4 % (0-0.5); Lymphocytes Absolute Auto 1.58 K/mm3 (0.9-3.2); Lymphocytes Percent Auto 20.1 % (18.3-44.2); Mean Corpuscular HGB Conc 32.4 g/dl (32-36); Mean Corpuscular Hemoglobin 33.6 pg (26-34); Mean Corpuscular Volume 103.7 fl (80-100); Mean Platelet Volume 12.2 fl (7.4-10.4); Monocytes Absolute Auto 0.5 K/mm3 (0.1-0.6); Neutrophils Absolute Auto 5.7 K/mm3 (1.3-6.7); Neutrophils Percent Auto 72.1 % (45.5-73.1); Platelet Count Result 181 k/mm3 (150-375); Red Blood Count 3.81 M/mm3 (4.2-5.4); Red Cell Distribution Width 12.7 % (11.5-14.5); White Blood Count 7.9 K/mm3 (4.5-10.0)
[2021-11-02 06:28] LABS: Anion Gap 4 mmol/L (8-16); Blood Urea Nitrogen 14 mg/dL (7-17); Calcium 7.7 mg/dL (8.4-10.2); Carbon Dioxide 23 mmol/L (22-30); Chloride 105 mmol/L (98-107); Estimated CRCL calculation 103 ml/min; Estimated Glomerular Filt Rate > 60; Glucose 235 mg/dL (65-110); Potassium 3.9 mmol/L (3.4-5.0); Sodium 132 mmol/L (137-145)
[2021-11-02 08:10] LABS: Glucose Point of Care 210 mg/dl (65-105)
--- NOTE | 2021-11-02 08:13 | WPDANESPN ---
Anes - Prog Note Post-Op Date/Time: 11/02/21 08:13 Cardiovascular status: normal Respiratory status: normal Airway patency: baseline Mental status: baseline Post-Op hydration status: normal Vital Signs: Last Vital Signs Temp 36.7 C 11/02/21 05:44 Pulse 66 11/02/21 05:44 Resp 16 11/02/21 05:44 BP 134/88 11/02/21 05:44 Pulse Ox 98 11/02/21 05:47 O2 Del Method Nasal Cannula 11/02/21 05:47 O2 Flow Rate 2 11/02/21 05:47 Pain Score (VAS): 10/11, patient states she is scheduled for her next dose of pain medications in 10 minutes. I/O: Intake & Output 11/01/21 11/02/21 11/02/21 23:59 07:59 15:59 Intake Total 150 50 Output Total 0 650 Balance 150 -600 Laboratory Tests 11/02/21 05:31 11/02/21 05:31 11/01/21 11/01/21 11/01/21 11:42 16:30 19:55 WBC RBC Hgb Hct MCV MCH MCHC RDW Plt Count MPV Immature Gran % (Auto) Neut % (Auto) Lymph % (Auto) [place] % (Auto) Eos % (Auto) Baso % (Auto) Lymph # (Auto) [place] # (Auto) Eos # (Auto) Baso # (Auto) Abs Immat Gran (auto) Absolute Neuts (auto) Absolute Nucleated RBC Nucleated RBC % Sodium Potassium Chloride Carbon Dioxide Anion Gap BUN Creatinine Estim Creat Clear Calc Estimated GFR Glucose POC Capillary Glucose 181 H 105 105 Calcium 11/01/21 11/02/21 11/02/21 20:44 05:31 05:31 WBC 7.9 RBC 3.81 L Hgb 12.8 Hct 39.5 MCV 103.7 H MCH 33.6 MCHC 32.4 RDW 12.7 Plt Count 181 MPV 12.2 H Immature Gran % (Auto) 0.4 Neut % (Auto) 72.1 Lymph % (Auto) 20.1 [place] % (Auto) 6.0 Eos % (Auto) 0.9 Baso % (Auto) 0.5 Lymph # (Auto) 1.58 [place] # (Auto) 0.5 Eos # (Auto) 0.1 Baso # (Auto) 0.0 Abs Immat Gran (auto) 0.03 Absolute Neuts (auto) 5.7 Absolute Nucleated RBC 0.0 Nucleated RBC % 0.0 Sodium 132 L Potassium 3.9 Chloride 105 Carbon Dioxide 23 Anion Gap 4 L BUN 14 D Creatinine 0.60 L Estim Creat Clear Calc 103 Estimated GFR > 60 Glucose 235 H POC Capillary Glucose 122 H Calcium 7.7 L 11/02/21 07:57 WBC RBC Hgb Hct MCV MCH MCHC RDW Plt Count MPV Immature Gran % (Auto) Neut % (Auto) Lymph % (Auto) [place] % (Auto) Eos % (Auto) Baso % (Auto) Lymph # (Auto) [place] # (Auto) Eos # (Auto) Baso # (Auto) Abs Immat Gran (auto) Absolute Neuts (auto) Absolute Nucleated RBC Nucleated RBC % Sodium Potassium Chloride Carbon Dioxide Anion Gap BUN Creatinine Estim Creat Clear Calc Estimated GFR Glucose POC Capillary Glucose 210 H Calcium Post-procedural complaints: none Patient Feedback: Patient satisfied with anesthetic care.
[2021-11-02] MEDS: GLIMEPIRIDE 2 MG TABLET 4 MG PO ×2 (08:24→18:08)
[2021-11-02] MEDS: PIOGLITAZONE HCL 45 MG TABLET PO (08:25)
[2021-11-02] MEDS: FAMOTIDINE 20 MG TABLET PO ×2 (08:25→20:53)
[2021-11-02] MEDS: MULTIVITAMINS THERAPEUTIC TAB (*BKC) 1 TABLET PO (08:25)
[2021-11-02] MEDS: ACYCLOVIR 400 MG TABLET 800 MG PO (08:25)
[2021-11-02] MEDS: EMPAGLIFLOZIN 25 MG TABLET BY MOUTH (08:25)
[2021-11-02] MEDS: lisinopriL 5 MG TABLET PO (08:25)
[2021-11-02] MEDS: SENNA/DOCUSATE SODIUM TABLET 2 TAB PO ×2 (08:25→18:08)
[2021-11-02] MEDS: polyethylene glycoL 3350 17 GM POWD.PACK PO (08:25)
[2021-11-02] MEDS: ENOXAPARIN 40 MG/0.4 ML SYRINGE SUB-Q (08:25)
--- NOTE | 2021-11-02 09:04 | PC.NURSE ---
Patients cast is very thick and stretches from toes to below the knee. Difficult to assess accurate pulses. Toes are warm to touch, normal color, blanchable, and patient feels sensation.
--- NOTE | 2021-11-02 10:09 | PM.PNORT ---
Progress Note: A&P Assessment and Plan (1) Closed displaced trimalleolar fracture of right ankle: Qualifiers: Encounter type: initial encounter Qualified Code(s): S82.851A - Displaced trimalleolar fracture of right lower leg, initial encounter for closed fracture Code(s): S82.851A - Displaced trimalleolar fracture of right lower leg, initial encounter for closed fracture Status: Acute Assessment and Plan: POD #1: ORIF Right Ankle Pain control. Ice. Elevate RLE. PT/OT. NWB RLE. Monitor splint/drainage. Splint to remain in place x2 weeks. Dispo: Home pending progress with PT/OT. Will arrange outpatient follow up in 2 weeks. (2) Elbow fracture, right: Code(s): S42.401A - Unspecified fracture of lower end of right humerus, initial encounter for closed fracture Status: Acute Assessment and Plan: Recently s/p hardware removal from a right elbow fracture which was treated at [facility]. PT/OT to assist with accommodations to maintain WB status. Patient may benefit from a forearm walker. (3) Status post hardware removal: Code(s): Z98.890 - Other specified postprocedural states Status: Acute (4) Diabetes: Code(s): E11.9 - Type 2 diabetes mellitus without complications Status: Acute Subjective Subjective Date/Time Seen: 11/02/21 10:09 Post Op day: 1 Interval history: POD #1: ORIF right ankle trimalleolar fracture including posterior malleolus Difficulty with pain control today. Up in chair. Tolerating diet well. Patient has concern for discharge plans and mobility given recent RUE surgery at an outside hospital and weakness/numbness in the right hand. She has concerns about her ability to use a walker or crutches to maintain WB status. Review of Systems Review of Systems: All systems reviewed & are unremarkable except as noted in HPI and below Cardiovascular: Cardiovascular: Denies chest pain, Denies diaphoresis, Denies lightheadedness and Denies palpitations Respiratory: Respiratory: Denies cough and Denies dyspnea Gastrointestinal: Gastrointestinal: Denies abdominal pain, Denies bloating, Denies nausea and Denies vomiting Genitourinary: Genitourinary: Denies hematuria and Denies nocturia Musculoskeletal: Musculoskeletal: Reports as per HPI Exam Const: General: comfortable and in distress mild (pain) Resp: Effort & Inspection: normal respiratory effort GI: GI Palp: Yes Soft to palpation and No Tenderness to palpation present (GI) Skin: Wounds: no wounds (Right elbow, right splint CDI ) Extrem: Right upper extremity: elbow/forearm (Incision well approximated, sutures notes. No open areas. ), wrist normal to inspection and Extremity exam: right hand normal to inspection Right lower extremity: lower leg (Large Splint C/D/I ), ankle (Splint c/d/i ) and foot (moves toes, sensation intact to light touch. ) Objective Data Vital Signs Vital Signs: Vital Signs - 24 hr 11/01/21 14:00 11/01/21 16:20 11/01/21 19:34 Temperature 36.6 C 36.7 C 37.2 C Pulse Rate 84 87 78 Respiratory Rate 18 16 10 L Blood Pressure 116/51 L 114/59 L 98/54 L Pulse Oximetry 96 96 100 Oxygen Delivery Room Air Simple Face Mask Oxygen Flow Rate 8 11/01/21 19:45 11/01/21 20:00 11/01/21 20:15 Temperature Pulse Rate 76 92 87 Respiratory Rate 16 16 10 L Blood Pressure 107/61 121/67 116/63 Pulse Oximetry 100 96 99 Oxygen Delivery Simple Face Mask Room Air Nasal Cannula Oxygen Flow Rate 8 2 11/01/21 20:28 11/01/21 20:39 11/01/21 20:54 Temperature 36.9 C 36.9 C Pulse Rate 83 80 76 Respiratory Rate 12 16 16 Blood Pressure 117/63 127/73 122/66 Pulse Oximetry 99 100 100 Oxygen Delivery Nasal Cannula Oxygen Flow Rate 2 11/01/21 21:52 11/01/21 21:24 11/01/21 22:24 Temperature 36.9 C 36.9 C Pulse Rate 80 71 Respiratory Rate 16 16 Blood Pressure 117/57 L 116/60 Pulse Oximetry 100 100 100 Oxygen Delivery Nasal Cannula
[2021-11-02 11:24] VITALS: BP 116/56; PULSE 98; RESP 18; TEMP 36.7; O2SAT 96
[2021-11-02] MEDS: KCL 20 MEQ/D5/0.45% SOD CHL 1,000 ML 80 ML IV CONT (11:36)
[2021-11-02 12:16] LABS: Glucose Point of Care 278 mg/dl (65-105)
[2021-11-02 14:24] VITALS: BP 113/65; PULSE 91; RESP 16; TEMP 36.6; O2SAT 98
[2021-11-02] MEDS: HYDROcodone/acetaminophen (*CRX) 5-325 MG TABLET 1 TAB PO ×2 (15:30→20:53)
[2021-11-02 16:54] LABS: Glucose Point of Care 172 mg/dl (65-105)
[2021-11-02 20:51] VITALS: BP 107/69; PULSE 90; RESP 16; TEMP 36.6; O2SAT 98
[2021-11-02] MEDS: INSULIN GLARGINE (*BKC) 100 UNITS/ML 22 UNITS SUB-Q (20:55)
[2021-11-02 21:21] LABS: Glucose Point of Care 205 mg/dl (65-105)
[2021-11-03] MEDS: MORPHINE SULFATE (*CRX) 4 MG/ML INJ 3 MG IV PUSH (00:52)
[2021-11-03 04:45] VITALS: BP 120/63; PULSE 85; RESP 16; TEMP 36.1; O2SAT 100
[2021-11-03] MEDS: HYDROcodone/acetaminophen (*CRX) 5-325 MG TABLET 1 TAB PO ×5 (05:34→23:16)
[2021-11-03] MEDS: GLIMEPIRIDE 2 MG TABLET 4 MG PO ×2 (08:47→17:47)
[2021-11-03] MEDS: ACYCLOVIR 400 MG TABLET 800 MG PO (08:48)
[2021-11-03] MEDS: SENNA/DOCUSATE SODIUM TABLET 2 TAB PO ×2 (08:48→17:47)
[2021-11-03] MEDS: EMPAGLIFLOZIN 25 MG TABLET BY MOUTH (08:49)
[2021-11-03] MEDS: FAMOTIDINE 20 MG TABLET PO ×2 (08:49→20:44)
[2021-11-03] MEDS: ENOXAPARIN 40 MG/0.4 ML SYRINGE SUB-Q (08:49)
[2021-11-03] MEDS: lisinopriL 5 MG TABLET PO (08:49)
[2021-11-03] MEDS: polyethylene glycoL 3350 17 GM POWD.PACK PO (08:53)
[2021-11-03] MEDS: MULTIVITAMINS THERAPEUTIC TAB (*BKC) 1 TABLET PO (08:53)
[2021-11-03] MEDS: PIOGLITAZONE HCL 45 MG TABLET PO (08:54)
--- NOTE | 2021-11-03 09:13 | PM.PNORT ---
Progress Note: A&P Assessment and Plan (1) Closed displaced trimalleolar fracture of right ankle: Qualifiers: Encounter type: initial encounter Qualified Code(s): S82.851A - Displaced trimalleolar fracture of right lower leg, initial encounter for closed fracture Code(s): S82.851A - Displaced trimalleolar fracture of right lower leg, initial encounter for closed fracture Status: Acute Assessment and Plan: POD #2: ORIF Right Ankle Pain control. Ice. Elevate RLE. PT/OT. NWB RLE. Monitor splint/drainage. Splint to remain in place x2 weeks. blood sugar improved. Dispo: Patient with difficulty ambulating, mobility and caring for self. Required to be at home alone for periods of time. May require care home placement until patient is safe to be home. Will discuss with care coordination. Will arrange outpatient follow up in 2 weeks. (2) Elbow fracture, right: Code(s): S42.401A - Unspecified fracture of lower end of right humerus, initial encounter for closed fracture Status: Acute Assessment and Plan: Recently s/p hardware removal from a right elbow fracture which was treated at [facility]. PT/OT to assist with accommodations to maintain WB status. Patient may benefit from a forearm walker Or wheeled. (3) Status post hardware removal: Code(s): Z98.890 - Other specified postprocedural states Status: Acute (4) Diabetes: Code(s): E11.9 - Type 2 diabetes mellitus without complications Status: Acute Subjective Subjective Date/Time Seen: 11/03/21 09:13 Post Op day: 2 Principal diagnosis: Right ankle trimalleolar fracture Interval history: up in chair. Alert and oriented. Pain improved. Still working with therapy for mobility. Review of Systems Review of Systems: All systems reviewed & are unremarkable except as noted in HPI and below Constitutional: Constitutional: Denies fever(s) Eyes: Eyes: Denies blurry vision ENT: Reports Normal hearing present Cardiovascular: Cardiovascular: Denies chest pain, Denies diaphoresis, Denies lightheadedness, Denies palpitations and Denies dyspnea Respiratory: Respiratory: Denies cough, Denies dyspnea and Denies wheezing Gastrointestinal: Gastrointestinal: Denies abdominal pain, Denies bloating, Denies nausea and Denies vomiting Genitourinary: Genitourinary: Denies hematuria, Denies nocturia and Denies urinary urgency Musculoskeletal: Musculoskeletal: Reports as per HPI and Denies numbness Integumentary/Breasts: Skin/Breast: Denies changing lesions and Denies sores Neurologic: Reports Normal hearing present, Denies behavioral changes, Denies confusion, Denies numbness and Denies convulsions Psychiatric: Psychiatric: Denies behavioral changes, Denies confusion and Denies hallucinations Endocrine: Endocrine: Denies heat intolerance and Denies palpitations Hematologic/Lymphatic: Hematologic/Lymphatic: Denies easy bleeding Allergic/Immunologic: Allergic/Immunologic: Denies wheezing Exam Const: General: comfortable and in distress mild (pain); No acute distress or confusion Orientation/consciousness: No confusion Resp: Effort & Inspection: normal respiratory effort and no audible wheezes Skin: Wounds: no wounds (Right elbow, right splint CDI ) Neuro: General: No confusion Cranial nerves: Yes Normal hearing present Extrem: Right upper extremity: elbow/forearm (Incision well approximated, sutures notes. No open areas. ), wrist normal to inspection and Extremity exam: right hand normal to inspection Right lower extremity: lower leg (Large Splint C/D/I ), ankle (Splint c/d/i ) Details: tenderness Location: of the lateral malleolus, of the medial malleolus and anteriorly and foot (moves toes, sensation intact to light touch. ) Details: vascular exam Details: dorsalis pedis pulse present and normal capillary refill and motor-sensory exam Details: light-touch normal Location: in all toe
[2021-11-03 13:47] LABS: Anion Gap 13 mmol/L (8-16); Blood Urea Nitrogen 13 mg/dL (7-17); Calcium 8.6 mg/dL (8.4-10.2); Carbon Dioxide 26 mmol/L (22-30); Chloride 98 mmol/L (98-107); Estimated CRCL calculation 90 ml/min; Estimated Glomerular Filt Rate > 60; Glucose 122 mg/dL (65-110); Potassium 3.8 mmol/L (3.4-5.0); Sodium 137 mmol/L (137-145)
[2021-11-03 14:00] VITALS: BP 122/50; PULSE 87; RESP 18; TEMP 36.4; O2SAT 98
--- NOTE | 2021-11-03 17:19 | PM.IMCN ---
Assessment and Plan Assessment and plan (1) Closed displaced trimalleolar fracture of right ankle: Qualifiers: Encounter type: initial encounter Qualified Code(s): S82.851A - Displaced trimalleolar fracture of right lower leg, initial encounter for closed fracture Code(s): S82.851A - Displaced trimalleolar fracture of right lower leg, initial encounter for closed fracture Status: Acute Assessment and Plan: - - See operative note from Dr. Mac on 11/01/2021 open reduction internal fixation right ankle tri malleolar fracture including posterior malleolus. - DVT prophylaxis per Orthopedic Dr. - pain management per Orthopedic Dr. - OT PT - the patient is trying to determine what she can do to get back home. She has a couple steps that she needs to get into when she goes home. I discussed possibly getting a wheelchair and going up the steps backwards with her pulling her up the steps in the wheelchair. Also the patient is wanting a bedside commode if possible. She would like to have physical therapy and occupational therapy in her home if possible. Otherwise she does not feel that she is able to take care of herself since she recently had a right elbow fracture she had hardware removed around October 17. This injury was separate from what she sustained when she 1st came in here. She is still recovering with the right elbow fracture as well as her right ankle fracture. She is having difficulty moving around. The patient stated that she would go to rehab facility if needed. She really wants to go home but feels that she cannot take care of herself at home. (2) Hypercholesteremia: Code(s): E78.00 - Pure hypercholesterolemia, unspecified Status: Acute Assessment and Plan: - She does not appear to be on any cholesterol medicine this may be controlled with diet and exercise. (3) Diabetes: Code(s): E11.9 - Type 2 diabetes mellitus without complications Status: Acute Assessment and Plan: - I did start her on sliding scale insulin with Accu-Cheks AC and HS. - She was continued on her Amaryl - she is also on long-acting insulin - continue with the Januvia - continue with Actos. (4) Status post hardware removal: Code(s): Z98.890 - Other specified postprocedural states Status: Acute Assessment and Plan: - She recently had hardware removed from right elbow earlier this month at [facility]. This was prior to her ankle fracture Plan patient was placed on Pepcid for GI protective measures hyponatremia has been resolved HPI Data of Consult Consult date: 11/03/21 Requesting Physician: Justin Mac MD Primary Care Provider: Telly Cardona, PA Consult Narrative Narrative: Marleen Khanna is a 51 year old female who came to the emergency room on 10/31/2021 with complaints of right ankle pain. 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 The patient denies hitting her head or having any previous injury to her right lower extremity. The patient was admitted for reduction and splinting of her right ankle fracture dislocation. On 11/01/2021 the patient was taken to surgery for open reduction internal fixation right ankle trimalleolar fracture including posterior malleolus. OT and PT consult has been placed. The patient was admitted to inpatient status and I was asked to consult on this day 11/03/2021. (The patient continues to recover from the 2 surgeries that she had on her right wrist. The last surgery being around October 19 On her right elbow. the patient has recently had elbow surgery x2 at [facility].) Review of Systems Review of Systems: see HPI All systems reviewed & are unremarkable except as noted in HPI and below Constitutional: Constitutional: Reports as per HPI and Reports no additional constitutional complaints Eyes: Eyes: Report
[2021-11-03 20:37] VITALS: BP 138/60; PULSE 83; RESP 18; TEMP 36.1; O2SAT 98
[2021-11-03] MEDS: INSULIN GLARGINE (*BKC) 100 UNITS/ML 22 UNITS SUB-Q (20:41)
[2021-11-03] MEDS: IBUPROFEN IV 400 MG in SODIUM CHLORIDE 0.9% IV 100 ML 208 MG IVPB (21:03)
[2021-11-03 21:32] LABS: Glucose Point of Care 209 mg/dl (65-105)
[2021-11-04 04:53] VITALS: BP 115/69; PULSE 77; RESP 18; TEMP 36.2; O2SAT 97
[2021-11-04] MEDS: HYDROcodone/acetaminophen (*CRX) 5-325 MG TABLET 1 TAB PO ×5 (04:53→23:51)
[2021-11-04 05:18] LABS: Basophils Percent Auto 0.4 % (0.2-1.2); Eosinophils Absolute Auto 0.2 K/mm3 (0-0.3); Eosinophils Percent Auto 2.3 % (0-4.4); Hematocrit 39.8 % (37.0-47.0); Hemoglobin 13.5 g/dL (12.0-15.0); Immature Granulocyte Absolute 0.05 K/mm3 (0.00-0.031); Immature Granulocyte Percent A 0.6 % (0-0.5); Lymphocytes Percent Auto 22.1 % (18.3-44.2); Mean Corpuscular HGB Conc 33.9 g/dl (32-36); Mean Corpuscular Hemoglobin 33.9 pg (26-34); Mean Platelet Volume 11.8 fl (7.4-10.4); Monocytes Absolute Auto 0.7 K/mm3 (0.1-0.6); Monocytes Percent Auto 8.5 % (2.6-8.5); Neutrophils Absolute Auto 5.4 K/mm3 (1.3-6.7); Neutrophils Percent Auto 66.1 % (45.5-73.1); Platelet Count Result 204 k/mm3 (150-375); Red Blood Count 3.98 M/mm3 (4.2-5.4); Red Cell Distribution Width 12.4 % (11.5-14.5); White Blood Count 8.1 K/mm3 (4.5-10.0)
[2021-11-04 05:39] LABS: Alanine Aminotransferase 13 U/L (6-35); Albumin Level 3.7 g/dL (3.5-5.1); Alkaline Phosphatase 84 U/L (38-126); Anion Gap 13 mmol/L (8-16); Aspartate Amino Transferase 19 U/L (14-36); Bilirubin,Total 0.4 mg/dL (0.2-1.3); Blood Urea Nitrogen 15 mg/dL (7-17); Calcium 8.7 mg/dL (8.4-10.2); Carbon Dioxide 26 mmol/L (22-30); Chloride 101 mmol/L (98-107); Estimated CRCL calculation 103 ml/min; Estimated Glomerular Filt Rate > 60; Glucose 110 mg/dL (65-110); Potassium 3.6 mmol/L (3.4-5.0); Sodium 140 mmol/L (137-145)
[2021-11-04] MEDS: MORPHINE SULFATE (*CRX) 4 MG/ML INJ 3 MG IV PUSH (09:00)
[2021-11-04] MEDS: SENNA/DOCUSATE SODIUM TABLET 2 TAB PO ×2 (09:06→17:15)
[2021-11-04] MEDS: PIOGLITAZONE HCL 45 MG TABLET PO (09:07)
[2021-11-04] MEDS: EMPAGLIFLOZIN 25 MG TABLET BY MOUTH (09:07)
[2021-11-04] MEDS: GLIMEPIRIDE 2 MG TABLET 4 MG PO ×2 (09:07→17:15)
[2021-11-04] MEDS: lisinopriL 5 MG TABLET PO (09:07)
[2021-11-04] MEDS: polyethylene glycoL 3350 17 GM POWD.PACK PO (09:07)
[2021-11-04] MEDS: ACYCLOVIR 400 MG TABLET 800 MG PO (09:07)
[2021-11-04] MEDS: MULTIVITAMINS THERAPEUTIC TAB (*BKC) 1 TABLET PO (09:07)
[2021-11-04] MEDS: FAMOTIDINE 20 MG TABLET PO ×2 (09:08→20:27)
[2021-11-04] MEDS: ENOXAPARIN 40 MG/0.4 ML SYRINGE SUB-Q (09:08)
[2021-11-04 09:12] LABS: Glucose Point of Care 87 mg/dl (65-105)
--- NOTE | 2021-11-04 10:23 | PM.PNORT ---
Progress Note: A&P Assessment and Plan (1) Closed displaced trimalleolar fracture of right ankle: Qualifiers: Encounter type: initial encounter Qualified Code(s): S82.851A - Displaced trimalleolar fracture of right lower leg, initial encounter for closed fracture Code(s): S82.851A - Displaced trimalleolar fracture of right lower leg, initial encounter for closed fracture Status: Acute Assessment and Plan: POD #3: ORIF Right Ankle Pain control. Ice. Elevate RLE. PT/OT. NWB RLE. Crutches vs. walker. Monitor splint/drainage. Splint to remain in place x2 weeks. Plan to change at outpatient follow up appointment. Plan to transition to PO Aspirin 81mg at discharge for DVT prophylaxis. Dispo: Patient with difficulty ambulating, mobility and caring for self. Required to be at home alone for periods of time. Plan for SNF placement. Authorization pending. Okay to discharge when placement available and medical stability. (2) Elbow fracture, right: Code(s): S42.401A - Unspecified fracture of lower end of right humerus, initial encounter for closed fracture Status: Acute Assessment and Plan: Recently s/p hardware removal from a right elbow fracture which was treated at [facility]. PT/OT to assist with accommodations to maintain WB status. Difficulty with walker use to maintain RLE NWB. Discussed with PT. May trial crutches today. (3) Status post hardware removal: Code(s): Z98.890 - Other specified postprocedural states Status: Acute (4) Diabetes: Code(s): E11.9 - Type 2 diabetes mellitus without complications Status: Acute Assessment and Plan: Appreciate hospitalist consult and medical management. Subjective Subjective Date/Time Seen: 11/04/21 10:23 Post Op day: 3 Principal diagnosis: Right ankle trimalleolar fracture Interval history: Slow progress with PT/OT. 12/11 pain upon awakening this AM. Resolved with pain medication. Working with PT. Concerns about right elbow pain with use of walker. Review of Systems Review of Systems: All systems reviewed & are unremarkable except as noted in HPI and below Constitutional: Constitutional: Denies fever(s) Eyes: Eyes: Denies blurry vision ENT: Reports Normal hearing present Cardiovascular: Cardiovascular: Denies chest pain, Denies diaphoresis, Denies lightheadedness, Denies palpitations and Denies dyspnea Respiratory: Respiratory: Denies cough, Denies dyspnea and Denies wheezing Gastrointestinal: Gastrointestinal: Denies abdominal pain, Denies bloating, Denies nausea and Denies vomiting Genitourinary: Genitourinary: Denies hematuria, Denies nocturia and Denies urinary urgency Musculoskeletal: Musculoskeletal: Reports as per HPI and Denies numbness Integumentary/Breasts: Skin/Breast: Denies changing lesions and Denies sores Neurologic: Reports Normal hearing present, Denies behavioral changes, Denies confusion, Denies numbness and Denies convulsions Psychiatric: Psychiatric: Denies behavioral changes, Denies confusion and Denies hallucinations Endocrine: Endocrine: Denies heat intolerance and Denies palpitations Hematologic/Lymphatic: Hematologic/Lymphatic: Denies easy bleeding Allergic/Immunologic: Allergic/Immunologic: Denies wheezing Exam Const: General: comfortable and in distress mild (pain); No acute distress or confusion Orientation/consciousness: No confusion Resp: Effort & Inspection: normal respiratory effort and no audible wheezes Skin: Wounds: no wounds (Right elbow, right splint CDI ) Neuro: General: No confusion Cranial nerves: Yes Normal hearing present Extrem: Right upper extremity: elbow/forearm (Incision well approximated, sutures notes. No open areas. ), wrist normal to inspection and Extremity exam: right hand normal to inspection Right lower extremity: lower leg (Large Splint C/D/I ), ankle (Splint c/d/i ) Details: tenderness Location: of the la
[2021-11-04 12:37] LABS: Glucose Point of Care 182 mg/dl (65-105)
--- NOTE | 2021-11-04 15:36 | PM.IMPN ---
Progress Note: A&P Assessment and Plan (1) Closed displaced trimalleolar fracture of right ankle: Qualifiers: Encounter type: initial encounter Qualified Code(s): S82.851A - Displaced trimalleolar fracture of right lower leg, initial encounter for closed fracture Code(s): S82.851A - Displaced trimalleolar fracture of right lower leg, initial encounter for closed fracture Status: Acute Assessment and Plan: Underwent ORIF on 11/01/2021 Management per Orthopedic surgery Splint to remain in place for 2 weeks she will need outpatient follow-up Planning for SNF on discharge Continue PT/OT (2) Diabetes: Code(s): E11.9 - Type 2 diabetes mellitus without complications Status: Acute Assessment and Plan: Blood sugars have been well controlled today Continue Accu-Cheks, sliding scale insulin, hypoglycemic protocol Continue Jardiance, Amaryl, Actos, Januvia Check A1c (3) Status post hardware removal: Code(s): Z98.890 - Other specified postprocedural states Status: Acute Assessment and Plan: She recently had hardware removed from right elbow earlier this month at [facility] prior to ankle fracture Having difficulty using walker due to elbow fracture Subjective Date/time seen: 11/04/21 15:36 Interval history: Date of service: 11/04/2021 Marleen Khanna is a 51-year-old female with a history of diabetes, hyperlipidemia, hypertension who is s/p ORIF right ankle on 11/01/2021. She states her ankle pain is 5/10 today. Her pain is improved with pain medications. She has been getting around using a bright Stedy. She denies shortness breath, cough, chest pain, dizziness, lightheadedness, fever, chills. Tolerating her diet. No abdominal pain. Review of Systems Review of Systems: All systems reviewed & are unremarkable except as noted in HPI and below Exam Narrative: General: Well-nourished, well-appearing 51-year-old female, sitting in a chair eating lunch, comfortable, NARD Neuro: awake, alert and oriented x4, speech clear, no focal neuro deficits noted HEENMT: normocephalic, atraumatic, EOMI, sclerae anicteric, moist oral mucosa Respiratory: clear to auscultation bilaterally, nonlabored breathing Cardio: regular rate, regular rhythm with S1-S2 Abdomen: nondistended, normoactive bowel sounds, soft, nontender to palpation Extremities: Right ankle wrapped in splint, able to wiggle right toes, brisk capillary refill, left lower extremity with no edema, erythema, tenderness to palpation Skin: no rashes or lesions, warm and dry Psych: appropriate mood and affect, judgment and insight intact Objective Data Vital Signs Vital Signs: Vital Signs - 24 hr 11/03/21 20:37 11/04/21 04:53 Temperature 97 F L 97.1 F L Pulse Rate 83 77 Respiratory Rate 18 18 Blood Pressure 138/60 115/69 Pulse Oximetry 98 97 Intake/Output Intake/Output: Intake & Output 11/01/21 11/02/21 11/03/21 11/04/21 23:59 23:59 23:59 23:59 Intake Total 1254 2670 1004 730 Output Total 0 1700 Balance 9768 993 4902 730 Meds/Results Medications: Active Medications Generic Name Dose Route Start Last Admin Trade Name Abadq PRN Reason Stop Dose Admin Acetaminophen 650 mg 11/01/21 20:39 Acetaminophen 325 Mg Tablet PO Q6H PRN Pain or Fever Hydrocodone Bitart/Acetaminophen 1 tab 11/01/21 20:39 11/04/21 12:44 Hydrocodone/Acetaminophen (*Crx) 5-325 Mg Tablet PO 1 tab Q3H PRN Administration Pain Rated 4-6 Acyclovir 800 mg 11/02/21 09:00 11/04/21 09:07 Acyclovir 400 Mg Tablet PO 800 mg DAILY ЕКАТЕРИНА Administration Bisacodyl 10 mg 11/01/21 20:39 Bisacodyl 10 Mg Suppository RECTAL DAILY PRN Constipation Calcium Carbonate 500 mg 11/02/21 09:00 11/04/21 09:07 Calcium/Vitamin D 500 Mg Tablet PO 500 mg BID ЕКАТЕРИНА Administration Dextrose 12.5 gm 11/03/21 17:26 Dextrose 50% 25 Gm/50 Ml Syringe
[2021-11-04 16:05] VITALS: BP 114/63; PULSE 97; RESP 16; TEMP 35.7; O2SAT 98
[2021-11-04 17:36] LABS: Glucose Point of Care 170 mg/dl (65-105)
[2021-11-04] MEDS: INSULIN GLARGINE (*BKC) 100 UNITS/ML 22 UNITS SUB-Q (20:27)
[2021-11-04 20:52] VITALS: BP 107/53; PULSE 82; RESP 18; TEMP 36.7; O2SAT 98
[2021-11-04 21:43] VITALS: O2SAT 98
[2021-11-04 22:09] LABS: Glucose Point of Care 175 mg/dl (65-105)
[2021-11-05] MEDS: HYDROcodone/acetaminophen (*CRX) 5-325 MG TABLET 1 TAB PO ×5 (04:38→20:54)
[2021-11-05 04:48] VITALS: BP 102/52; PULSE 81; RESP 18; TEMP 36.5; O2SAT 98
[2021-11-05 05:42] LABS: Hemoglobin A1C 7.5 % (<5.7)
[2021-11-05 05:47] LABS: Anion Gap 13 mmol/L (8-16); Blood Urea Nitrogen 16 mg/dL (7-17); Calcium 8.4 mg/dL (8.4-10.2); Carbon Dioxide 25 mmol/L (22-30); Chloride 102 mmol/L (98-107); Estimated CRCL calculation 103 ml/min; Estimated Glomerular Filt Rate > 60; Glucose 97 mg/dL (65-110); Potassium 3.7 mmol/L (3.4-5.0); Sodium 140 mmol/L (137-145)
[2021-11-05] MEDS: EMPAGLIFLOZIN 25 MG TABLET BY MOUTH (08:11)
[2021-11-05] MEDS: PIOGLITAZONE HCL 45 MG TABLET PO (08:11)
[2021-11-05] MEDS: ACYCLOVIR 400 MG TABLET 800 MG PO (08:11)
[2021-11-05] MEDS: MULTIVITAMINS THERAPEUTIC TAB (*BKC) 1 TABLET PO (08:12)
[2021-11-05] MEDS: SENNA/DOCUSATE SODIUM TABLET 2 TAB PO ×2 (08:12→17:29)
[2021-11-05] MEDS: lisinopriL 5 MG TABLET PO (08:12)
[2021-11-05] MEDS: FAMOTIDINE 20 MG TABLET PO ×2 (08:12→20:57)
[2021-11-05] MEDS: GLIMEPIRIDE 2 MG TABLET 4 MG PO ×2 (08:12→17:29)
[2021-11-05] MEDS: ENOXAPARIN 40 MG/0.4 ML SYRINGE SUB-Q (08:13)
[2021-11-05 08:59] LABS: Glucose Point of Care 92 mg/dl (65-105)
[2021-11-05 12:31] LABS: Glucose Point of Care 151 mg/dl (65-105)
--- NOTE | 2021-11-05 14:20 | PM.IMPN ---
Progress Note: A&P Assessment and Plan (1) Closed displaced trimalleolar fracture of right ankle: Qualifiers: Encounter type: initial encounter Qualified Code(s): S82.851A - Displaced trimalleolar fracture of right lower leg, initial encounter for closed fracture Code(s): S82.851A - Displaced trimalleolar fracture of right lower leg, initial encounter for closed fracture Status: Acute Assessment and Plan: Underwent ORIF on 11/01/2021 Management per Orthopedic surgery Splint to remain in place for 2 weeks. She will need outpatient follow-up Planning for SNF on discharge Continue PT/OT (2) Diabetes: Code(s): E11.9 - Type 2 diabetes mellitus without complications Status: Acute Assessment and Plan: A1c is 7.5. Blood sugars have been well controlled today Continue Accu-Cheks, sliding scale insulin, hypoglycemic protocol Continue Jardiance, Amaryl, Actos, Januvia (3) Status post hardware removal: Code(s): Z98.890 - Other specified postprocedural states Status: Acute Assessment and Plan: Underwent ORIF ankle fracture in June 2020 that was complicated by persistent arm pain. Due to this, she recently had hardware removed from right elbow on 10/16 at [facility] prior to ankle fracture Having difficulty using walker due to elbow fracture (4) Hypertension: Code(s): I10 - Essential (primary) hypertension Status: Acute Assessment and Plan: Blood pressure reviewed and has been well controlled Continue home lisinopril Subjective Date/time seen: 11/05/21 14:20 Interval history: Date of service: 11/05/2021 Marleen Khanna is a 51-year-old female with a history of diabetes, hyperlipidemia, hypertension who is s/p ORIF right ankle on 11/01/2021. Doing fairly well today. She has 4-5/10 ankle pain. She complains of pain in her arm when she tries to use a walker. Denies abdominal pain, nausea, vomiting. Tolerating her diet. No shortness breath, cough, chest pain. No fevers or chills. Denies urinary symptoms. Review of Systems Review of Systems: All systems reviewed & are unremarkable except as noted in HPI and below Exam Narrative: General: Well-nourished, well-appearing 51-year-old female, sitting in a chair by the bedside, comfortable, NARD Neuro: awake, alert and oriented x4, speech clear, no focal neuro deficits noted HEENMT: normocephalic, atraumatic, EOMI, sclerae anicteric, moist oral mucosa Respiratory: clear to auscultation bilaterally, nonlabored breathing Cardio: regular rate, regular rhythm with S1-S2 Abdomen: nondistended, normoactive bowel sounds, soft, nontender to palpation Extremities: Right elbow without edema or tenderness to palpation, incision intact. Right ankle wrapped in splint, able to wiggle right toes, brisk capillary refill, left lower extremity with no edema, erythema, tenderness to palpation Skin: no rashes or lesions, warm and dry Psych: appropriate mood and affect, judgment and insight intact Objective Data Vital Signs Vital Signs: Vital Signs - 24 hr 11/04/21 16:05 11/04/21 20:52 11/04/21 21:43 Temperature 96.2 F L 98.1 F Pulse Rate 97 82 Respiratory Rate 16 18 Blood Pressure 114/63 107/53 L Pulse Oximetry 98 98 98 Oxygen Delivery Room Air 11/05/21 04:48 Temperature 97.7 F Pulse Rate 81 Respiratory Rate 18 Blood Pressure 102/52 L Pulse Oximetry 98 Oxygen Delivery Intake/Output Intake/Output: Intake & Output 11/02/21 11/03/21 11/04/21 11/05/21 23:59 23:59 23:59 23:59 Intake Total 2670 1004 970 480 Output Total 1700 Balance 970 1004 970 480 Meds/Results Medications: Active Medications Generic Name Dose Route Start Last Admin Trade Name Freq PRN Reason Stop Dose Admin Acetaminophen 650 mg 11/01/21 20:39 Acetaminophen 325 Mg Tablet PO Q6H PRN Pain or Fever Hydrocodone Bitart/Acetaminophen 1 tab 11/01/21
[2021-11-05 16:16] VITALS: BP 94/54; PULSE 85; RESP 14; TEMP 36.2; O2SAT 100
[2021-11-05 17:53] LABS: Glucose Point of Care 164 mg/dl (65-105)
[2021-11-05 19:44] VITALS: BP 112/52; PULSE 82; RESP 18; TEMP 36.3; O2SAT 99
[2021-11-05] MEDS: INSULIN GLARGINE (*BKC) 100 UNITS/ML 22 UNITS SUB-Q (21:09)
[2021-11-05 21:27] LABS: Glucose Point of Care 222 mg/dl (65-105)
[2021-11-06] MEDS: HYDROcodone/acetaminophen (*CRX) 5-325 MG TABLET 1 TAB PO ×7 (00:15→22:37)
[2021-11-06 05:42] VITALS: BP 129/67; PULSE 78; RESP 18; TEMP 36.8; O2SAT 99
[2021-11-06 08:15] LABS: Glucose Point of Care 95 mg/dl (65-105)
[2021-11-06] MEDS: PIOGLITAZONE HCL 45 MG TABLET PO (08:58)
[2021-11-06] MEDS: SENNA/DOCUSATE SODIUM TABLET 2 TAB PO ×2 (08:58→16:15)
[2021-11-06] MEDS: FAMOTIDINE 20 MG TABLET PO ×2 (08:58→20:40)
[2021-11-06] MEDS: ACYCLOVIR 400 MG TABLET 800 MG PO (08:58)
[2021-11-06] MEDS: lisinopriL 5 MG TABLET PO (08:58)
[2021-11-06] MEDS: MULTIVITAMINS THERAPEUTIC TAB (*BKC) 1 TABLET PO (08:58)
[2021-11-06] MEDS: GLIMEPIRIDE 2 MG TABLET 4 MG PO ×2 (08:58→16:15)
[2021-11-06] MEDS: EMPAGLIFLOZIN 25 MG TABLET BY MOUTH (08:59)
[2021-11-06] MEDS: ENOXAPARIN 40 MG/0.4 ML SYRINGE SUB-Q (08:59)
[2021-11-06 09:40] VITALS: O2SAT 96
--- NOTE | 2021-11-06 11:16 | PM.IMPN ---
Progress Note: A&P Assessment and Plan (1) Closed displaced trimalleolar fracture of right ankle: Qualifiers: Encounter type: initial encounter Qualified Code(s): S82.851A - Displaced trimalleolar fracture of right lower leg, initial encounter for closed fracture Code(s): S82.851A - Displaced trimalleolar fracture of right lower leg, initial encounter for closed fracture Status: Acute Assessment and Plan: Underwent ORIF on 11/01/2021 Management per Orthopedic surgery Splint to remain in place for 2 weeks. She will need outpatient follow-up Planning for SNF on discharge Continue PT/OT (2) Diabetes: Code(s): E11.9 - Type 2 diabetes mellitus without complications Status: Acute Assessment and Plan: A1c is 7.5. Blood sugars have been well controlled today Continue Accu-Cheks, sliding scale insulin, hypoglycemic protocol Continue Jardiance, Amaryl, Actos, Januvia (3) Status post hardware removal: Code(s): Z98.890 - Other specified postprocedural states Status: Acute Assessment and Plan: Underwent ORIF ankle fracture in June 2020 that was complicated by persistent arm pain. Due to this, she recently had hardware removed from right elbow on 10/16 at [facility] prior to ankle fracture Having difficulty using walker due to elbow fracture (4) Hypertension: Code(s): I10 - Essential (primary) hypertension Status: Acute Assessment and Plan: Blood pressure reviewed and has been well controlled. Last BP 129/67 Continue home lisinopril Subjective Date/time seen: 11/06/21 11:16 Interval history: Date of service: 11/06/2021 Marleen Khanna is a 51-year-old female with a history of diabetes, hyperlipidemia, hypertension who is s/p ORIF right ankle on 11/01/2021. doing okay today. Endorses 4/10 pain in her ankle. She has been able to get out of bed into the chair at the bedside using the Ember Stedy. She complains of 4/10 pain in her elbow. Tolerating her diet. No urinary symptoms. No shortness breath, cough, chest pain. Review of Systems Review of Systems: All systems reviewed & are unremarkable except as noted in HPI and below Exam Narrative: General: Well-nourished, well-appearing 51-year-old female, sitting in a chair by the bedside, comfortable, NARD Neuro: awake, alert and oriented x4, speech clear, no focal neuro deficits noted HEENMT: normocephalic, atraumatic, EOMI, sclerae anicteric, moist oral mucosa Respiratory: clear to auscultation bilaterally, nonlabored breathing Cardio: regular rate, regular rhythm with S1-S2 Abdomen: nondistended, normoactive bowel sounds, soft, nontender to palpation Extremities: Right ankle wrapped in splint, able to wiggle right toes, brisk capillary refill, left lower extremity with no edema, erythema, tenderness to palpation Skin: no rashes or lesions, warm and dry Psych: appropriate mood and affect, judgment and insight intact Objective Data Vital Signs Vital Signs: Vital Signs - 24 hr 11/05/21 16:16 11/05/21 19:44 11/06/21 05:42 Temperature 97.2 F L 97.4 F L 98.3 F Pulse Rate 85 82 78 Respiratory Rate 14 18 18 Blood Pressure 94/54 L 112/52 L 129/67 Pulse Oximetry 100 99 99 Oxygen Delivery 11/06/21 09:40 Temperature Pulse Rate Respiratory Rate Blood Pressure Pulse Oximetry 96 Oxygen Delivery Room Air Intake/Output Intake/Output: Intake & Output 11/03/21 11/04/21 11/05/21 11/06/21 23:59 23:59 23:59 23:59 Intake Total 1004 970 720 240 Balance 1004 970 720 240 Meds/Results Medications: Active Medications Generic Name Dose Route Start Last Admin Trade Name Freq PRN Reason Stop Dose Admin Acetaminophen 650 mg 11/01/21 20:39 Acetaminophen 325 Mg Tablet PO Q6H PRN Pain or Fever Hydrocodone Bitart/Acetaminophen 1 tab 11/01/21 20:39 11/06/21 08:57 Hydrocodone/Acetaminophen (*Crx) 5-325 Mg Tablet PO
[2021-11-06 11:39] LABS: Glucose Point of Care 105 mg/dl (65-105)
[2021-11-06 14:00] VITALS: BP 118/60; PULSE 78; RESP 14; TEMP 36.2; O2SAT 100
[2021-11-06 16:43] LABS: Glucose Point of Care 106 mg/dl (65-105)
[2021-11-06 20:37] LABS: Glucose Point of Care 242 mg/dl (65-105)
[2021-11-06] MEDS: INSULIN GLARGINE (*BKC) 100 UNITS/ML 22 UNITS SUB-Q (20:40)
[2021-11-06 21:48] VITALS: BP 114/60; PULSE 72; RESP 16; TEMP 37; O2SAT 98
[2021-11-06] MEDS: diazePAM (*CRX) 5 MG TABLET PO (22:38)
[2021-11-07] MEDS: HYDROcodone/acetaminophen (*CRX) 5-325 MG TABLET 1 TAB PO ×7 (02:34→23:06)
[2021-11-07 05:57] LABS: Anion Gap 8 mmol/L (8-16); Blood Urea Nitrogen 15 mg/dL (7-17); Carbon Dioxide 24 mmol/L (22-30); Chloride 104 mmol/L (98-107); Estimated CRCL calculation 103 ml/min; Estimated Glomerular Filt Rate > 60; Glucose 123 mg/dL (65-110); Potassium 3.7 mmol/L (3.4-5.0); Sodium 136 mmol/L (137-145)
[2021-11-07 06:00] VITALS: BP 118/65; PULSE 80; RESP 16; TEMP 37; O2SAT 98
[2021-11-07 08:06] LABS: Glucose Point of Care 116 mg/dl (65-105)
--- NOTE | 2021-11-07 08:14 | PCNWS ---
Weekly nutritional screen. Patient is tolerating current diet with adequate intake. No weight loss reported. No nutritional needs at this time.
[2021-11-07] MEDS: FAMOTIDINE 20 MG TABLET PO ×2 (09:34→20:05)
[2021-11-07] MEDS: ENOXAPARIN 40 MG/0.4 ML SYRINGE SUB-Q (09:34)
[2021-11-07] MEDS: SENNA/DOCUSATE SODIUM TABLET 2 TAB PO ×2 (09:34→16:59)
[2021-11-07] MEDS: ACYCLOVIR 400 MG TABLET 800 MG PO (09:35)
[2021-11-07] MEDS: EMPAGLIFLOZIN 25 MG TABLET BY MOUTH (09:35)
[2021-11-07] MEDS: GLIMEPIRIDE 2 MG TABLET 4 MG PO ×2 (09:35→16:59)
[2021-11-07] MEDS: MULTIVITAMINS THERAPEUTIC TAB (*BKC) 1 TABLET PO (09:35)
[2021-11-07] MEDS: PIOGLITAZONE HCL 45 MG TABLET PO (09:35)
[2021-11-07] MEDS: lisinopriL 5 MG TABLET PO (09:35)
--- NOTE | 2021-11-07 09:44 | PM.PNORT ---
Progress Note: A&P Assessment and Plan (1) Closed displaced trimalleolar fracture of right ankle: Qualifiers: Encounter type: initial encounter Qualified Code(s): S82.851A - Displaced trimalleolar fracture of right lower leg, initial encounter for closed fracture Code(s): S82.851A - Displaced trimalleolar fracture of right lower leg, initial encounter for closed fracture Status: Acute Assessment and Plan: POD #6: ORIF Right Ankle Pain control. Ice. Elevate RLE. PT/OT. NWB RLE. Crutches vs. walker. Monitor splint/drainage. Splint to remain in place x2 weeks. Plan to change at outpatient follow up appointment. Plan to transition to PO Aspirin 81mg at discharge for DVT prophylaxis. Dispo: Patient with difficulty ambulating, mobility and caring for self. Required to be at home alone for periods of time. Plan for SNF placement. Authorization pending. Okay to discharge when placement available and medical stability. (2) Elbow fracture, right: Code(s): S42.401A - Unspecified fracture of lower end of right humerus, initial encounter for closed fracture Status: Acute Assessment and Plan: Recently s/p hardware removal from a right elbow fracture which was treated at [facility]. PT/OT to assist with accommodations to maintain WB status. Difficulty with walker use to maintain RLE NWB. Discussed with PT. May trial crutches today. (3) Status post hardware removal: Code(s): Z98.890 - Other specified postprocedural states Status: Acute (4) Diabetes: Code(s): E11.9 - Type 2 diabetes mellitus without complications Status: Acute Assessment and Plan: Appreciate hospitalist consult and medical management. Subjective Subjective Date/Time Seen: 11/07/21 09:44 Post Op day: 6 Principal diagnosis: Right ankle trimalleolar fracture Interval history: Slow progress with PT/OT. Awaiting placement to SNF. Pain with some improvement today. Up in chair. Review of Systems Review of Systems: All systems reviewed & are unremarkable except as noted in HPI and below Exam Const: General: comfortable and in distress mild (pain); No acute distress or confusion Orientation/consciousness: No confusion Resp: Effort & Inspection: normal respiratory effort and no audible wheezes Skin: Wounds: no wounds (Right elbow, right splint CDI ) Neuro: General: No confusion Cranial nerves: Yes Normal hearing present Extrem: Right upper extremity: elbow/forearm (Incision well approximated, sutures notes. No open areas. ), wrist normal to inspection and Extremity exam: right hand normal to inspection Right lower extremity: lower leg (Large Splint C/D/I ), ankle (Splint c/d/i ) Details: tenderness Location: of the lateral malleolus, of the medial malleolus and anteriorly and foot (moves toes, sensation intact to light touch. ) Details: vascular exam Details: dorsalis pedis pulse present and normal capillary refill and motor-sensory exam Details: light-touch normal Location: in all toes Left lower extremity: normal to inspection, ankle Details: normal ROM and foot Details: vascular exam Details: dorsalis pedis pulse present and normal capillary refill and motor-sensory exam light-touch normal in all toes; no edema Other: splint in place right lower extremity. Toes exposed. Toes with good capillary refill and good sensation to touch. Able to move toes. Objective Data Vital Signs Vital Signs: Vital Signs - 24 hr 11/06/21 14:00 11/06/21 21:48 11/07/21 06:00 Temperature 36.2 C L 37.0 C 37.0 C Pulse Rate 78 72 80 Respiratory Rate 14 16 16 Blood Pressure 118/60 114/60 118/65 Pulse Oximetry 100 98 98 Intake/Output Intake/Output: Intake & Output 11/04/21 11/05/21 11/06/21 11/07/21 23:59 23:59 23:59 23:59 Intake Total 970 720 950 Balance 970 720 950 Meds/Results Medications: Active Medications Generic Name Dose Route Start Last Admin Trade N
[2021-11-07 12:10] LABS: Glucose Point of Care 188 mg/dl (65-105)
--- NOTE | 2021-11-07 12:48 | PM.IMPN ---
Progress Note: A&P Assessment and Plan (1) Closed displaced trimalleolar fracture of right ankle: Qualifiers: Encounter type: initial encounter Qualified Code(s): S82.851A - Displaced trimalleolar fracture of right lower leg, initial encounter for closed fracture Code(s): S82.851A - Displaced trimalleolar fracture of right lower leg, initial encounter for closed fracture Status: Acute Assessment and Plan: Underwent ORIF on 11/01/2021 Management per Orthopedic surgery Splint to remain in place for 2 weeks. She will need outpatient follow-up Planning for SNF on discharge Continue PT/OT (2) Diabetes: Code(s): E11.9 - Type 2 diabetes mellitus without complications Status: Acute Assessment and Plan: A1c is 7.5. Blood sugars have been well controlled Continue Accu-Cheks, sliding scale insulin, hypoglycemic protocol Continue Jardiance, Amaryl, Actos, Januvia (3) Status post hardware removal: Code(s): Z98.890 - Other specified postprocedural states Status: Acute Assessment and Plan: Underwent ORIF ankle fracture in June 2020 that was complicated by persistent arm pain. Due to this, she recently had hardware removed from right elbow on 10/[address] [facility] prior to ankle fracture Having difficulty using walker due to elbow fracture (4) Hypertension: Code(s): I10 - Essential (primary) hypertension Status: Acute Assessment and Plan: Blood pressure reviewed and has been well controlled. Last BP 118/65 Continue home lisinopril Subjective Date/time seen: 11/07/21 12:48 Interval history: Date of service: 11/07/2021 Marleen Khanna is a 51-year-old female with a history of diabetes, hyperlipidemia, hypertension who is s/p ORIF right ankle on 11/01/2021 and is being seen in consultation for medical management. She is feeling well today. States she had a difficult night and was in more pain than she has been. This morning she is doing better. Endorses 4/10 ankle pain and 2/10 elbow pain. She had a bowel movement yesterday. Denies urinary symptoms. No shortness breath, cough, chest pain. Review of Systems Review of Systems: All systems reviewed & are unremarkable except as noted in HPI and below Exam Narrative: General: Well-nourished, well-appearing 51-year-old female, sitting in a chair by the bedside, comfortable, NARD Neuro: awake, alert and oriented x4, speech clear, no focal neuro deficits noted HEENMT: normocephalic, atraumatic, EOMI, sclerae anicteric, moist oral mucosa Respiratory: clear to auscultation bilaterally, nonlabored breathing Cardio: regular rate, regular rhythm with S1-S2 Abdomen: nondistended, normoactive bowel sounds, soft, nontender to palpation Extremities: Right ankle wrapped in splint, able to wiggle right toes, brisk capillary refill, left lower extremity with no edema, erythema, tenderness to palpation Skin: no rashes or lesions, warm and dry Psych: appropriate mood and affect, judgment and insight intact Objective Data Vital Signs Vital Signs: Vital Signs - 24 hr 11/06/21 14:00 11/06/21 21:48 11/07/21 06:00 Temperature 97.2 F L 98.6 F 98.6 F Pulse Rate 78 72 80 Respiratory Rate 14 16 16 Blood Pressure 118/60 114/60 118/65 Pulse Oximetry 100 98 98 Oxygen Delivery 11/07/21 09:30 Temperature Pulse Rate Respiratory Rate Blood Pressure Pulse Oximetry Oxygen Delivery Room Air Intake/Output Intake/Output: Intake & Output 11/04/21 11/05/21 11/06/21 11/07/21 23:59 23:59 23:59 23:59 Intake Total 970 720 950 240 Balance 970 720 950 240 Meds/Results Medications: Active Medications Generic Name Dose Route Start Last Admin Trade Name Freq PRN Reason Stop Dose Admin Acetaminophen 650 mg 11/01/21 20:39 Acetaminophen 325 Mg Tablet PO Q6H PRN Pain or Fever Hydrocodone Bitart/Acetaminophen 1 tab 11/01/21 20:39 11/07/21
[2021-11-07 14:29] VITALS: BP 104/50; PULSE 62; RESP 18; TEMP 36.4; O2SAT 97
[2021-11-07 17:01] LABS: Glucose Point of Care 169 mg/dl (65-105)
[2021-11-07 20:00] VITALS: BP 125/62; PULSE 84; RESP 18; TEMP 36.1; O2SAT 99
[2021-11-07] MEDS: INSULIN GLARGINE (*BKC) 100 UNITS/ML 22 UNITS SUB-Q (20:05)
[2021-11-07 20:48] LABS: Glucose Point of Care 240 mg/dl (65-105)
[2021-11-07] MEDS: diazePAM (*CRX) 5 MG TABLET PO (23:06)
[2021-11-08] MEDS: HYDROcodone/acetaminophen (*CRX) 5-325 MG TABLET 1 TAB PO ×6 (03:22→23:26)
[2021-11-08 04:52] VITALS: BP 120/71; PULSE 81; RESP 18; TEMP 36.8; O2SAT 97
[2021-11-08] MEDS: PIOGLITAZONE HCL 45 MG TABLET PO (08:19)
[2021-11-08] MEDS: ENOXAPARIN 40 MG/0.4 ML SYRINGE SUB-Q (08:20)
[2021-11-08] MEDS: lisinopriL 5 MG TABLET PO (08:20)
[2021-11-08] MEDS: MULTIVITAMINS THERAPEUTIC TAB (*BKC) 1 TABLET PO (08:20)
[2021-11-08] MEDS: GLIMEPIRIDE 2 MG TABLET 4 MG PO ×2 (08:20→17:40)
[2021-11-08] MEDS: ACYCLOVIR 400 MG TABLET 800 MG PO (08:20)
[2021-11-08] MEDS: FAMOTIDINE 20 MG TABLET PO ×2 (08:21→20:20)
[2021-11-08] MEDS: EMPAGLIFLOZIN 25 MG TABLET BY MOUTH (08:21)
[2021-11-08 08:35] LABS: Glucose Point of Care 101 mg/dl (65-105)
--- NOTE | 2021-11-08 09:58 | PCOTNOTE ---
Patient attempting to make phone call regarding insurance and workman's comp. Patient not seen at this time for OT.
[2021-11-08 12:13] LABS: Glucose Point of Care 173 mg/dl (65-105)
--- NOTE | 2021-11-08 13:20 | PM.IMPN ---
Progress Note: A&P Assessment and Plan (1) Closed displaced trimalleolar fracture of right ankle: Qualifiers: Encounter type: initial encounter Qualified Code(s): S82.851A - Displaced trimalleolar fracture of right lower leg, initial encounter for closed fracture Code(s): S82.851A - Displaced trimalleolar fracture of right lower leg, initial encounter for closed fracture Status: Acute Assessment and Plan: Underwent ORIF on 11/01/2021 Management per Orthopedic surgery Splint to remain in place for 2 weeks. She will need outpatient follow-up Planning for SNF on discharge Continue PT/OT (2) Diabetes: Code(s): E11.9 - Type 2 diabetes mellitus without complications Status: Acute Assessment and Plan: A1c is 7.5. Blood sugars have been well controlled Continue Accu-Cheks, sliding scale insulin, hypoglycemic protocol Continue Jardiance, Amaryl, Actos, Januvia (3) Status post hardware removal: Code(s): Z98.890 - Other specified postprocedural states Status: Acute Assessment and Plan: Underwent ORIF ankle fracture in June 2020 that was complicated by persistent arm pain. Due to this, she recently had hardware removed from right elbow on 10/16 at [facility] prior to ankle fracture Having difficulty using walker due to elbow fracture (4) Hypertension: Code(s): I10 - Essential (primary) hypertension Status: Acute Assessment and Plan: Blood pressure reviewed and has been well controlled. Last BP 120/71 Continue home lisinopril Plan Patient is medically stable for discharge pending SNF placement. Will sign off at this time. Please call with any questions. Thank you for allowing me to participate in care of this patient. Subjective Date/time seen: 11/08/21 13:20 Interval history: Date of service: 11/07/2021 Marleen Khanna is a 51-year-old female with a history of diabetes, hyperlipidemia, hypertension who is s/p ORIF right ankle on 11/01/2021 and is being seen in consultation for medical management. She feels well today. Complains of 4/10 pain in her ankle. She has no additional concerns. Review of Systems Review of Systems: All systems reviewed & are unremarkable except as noted in HPI and below Exam Narrative: General: Well-nourished, well-appearing 51-year-old female, sitting in a chair by the bedside, comfortable, NARD Neuro: awake, alert and oriented x4, speech clear, no focal neuro deficits noted HEENMT: normocephalic, atraumatic, EOMI, sclerae anicteric, moist oral mucosa Respiratory: clear to auscultation bilaterally, nonlabored breathing Cardio: regular rate, regular rhythm with S1-S2 Abdomen: nondistended, normoactive bowel sounds, soft, nontender to palpation Extremities: Right ankle wrapped in splint, able to wiggle right toes, brisk capillary refill, left lower extremity with no edema, erythema, tenderness to palpation Skin: no rashes or lesions, warm and dry Psych: appropriate mood and affect, judgment and insight intact Objective Data Vital Signs Vital Signs: Vital Signs - 24 hr 11/07/21 14:29 11/07/21 20:00 11/08/21 04:52 Temperature 97.6 F 97 F L 98.2 F Pulse Rate 62 84 81 Respiratory Rate 18 18 18 Blood Pressure 104/50 L 125/62 120/71 Pulse Oximetry 97 99 97 Oxygen Delivery 11/08/21 08:00 Temperature Pulse Rate Respiratory Rate Blood Pressure Pulse Oximetry Oxygen Delivery Room Air Intake/Output Intake/Output: Intake & Output 11/05/21 11/06/21 11/07/21 11/08/21 23:59 23:59 23:59 23:59 Intake Total 720 950 960 730 Output Total 150 Balance 720 950 960 580 Meds/Results Medications: Active Medications Generic Name Dose Route Start Last Admin Trade Name Freq PRN Reason Stop Dose Admin Acetaminophen 650 mg 11/01/21 20:39 Acetaminophen 325 Mg Tablet PO Q6H PRN Pain or Fever Hydrocodone Bitart/Acetaminophen 1 tab
[2021-11-08 14:09] VITALS: BP 107/55; PULSE 79; RESP 16; TEMP 37; O2SAT 99
[2021-11-08 17:18] LABS: Glucose Point of Care 172 mg/dl (65-105)
[2021-11-08 20:16] VITALS: BP 100/57; PULSE 89; RESP 16; TEMP 36.1; O2SAT 98
[2021-11-08] MEDS: INSULIN GLARGINE (*BKC) 100 UNITS/ML 22 UNITS SUB-Q (20:20)
[2021-11-08] MEDS: DIPHENHYDRAMINE 1%/ZINC 0.1% CREAM 30 GM TUBE 1 APPLIC TOPICAL (20:32)
[2021-11-08 20:46] LABS: Glucose Point of Care 295 mg/dl (65-105)
[2021-11-08] MEDS: diazePAM (*CRX) 5 MG TABLET PO (23:26)
[2021-11-09] MEDS: HYDROcodone/acetaminophen (*CRX) 5-325 MG TABLET 1 TAB PO ×3 (05:12→16:08)
[2021-11-09 05:23] VITALS: BP 131/64; PULSE 79; RESP 18; TEMP 36.2; O2SAT 100
[2021-11-09 08:27] LABS: Glucose Point of Care 114 mg/dl (65-105)
[2021-11-09] MEDS: GLIMEPIRIDE 2 MG TABLET 4 MG PO ×2 (09:10→16:09)
[2021-11-09] MEDS: lisinopriL 5 MG TABLET PO (09:11)
[2021-11-09] MEDS: ENOXAPARIN 40 MG/0.4 ML SYRINGE SUB-Q (09:11)
[2021-11-09] MEDS: FAMOTIDINE 20 MG TABLET PO (09:11)
[2021-11-09] MEDS: PIOGLITAZONE HCL 45 MG TABLET PO (09:11)
[2021-11-09] MEDS: ACYCLOVIR 400 MG TABLET 800 MG PO (09:11)
[2021-11-09] MEDS: EMPAGLIFLOZIN 25 MG TABLET BY MOUTH (09:11)
[2021-11-09] MEDS: MULTIVITAMINS THERAPEUTIC TAB (*BKC) 1 TABLET PO (09:11)
[2021-11-09 11:58] LABS: Glucose Point of Care 136 mg/dl (65-105)
[2021-11-09 14:00] VITALS: BP 122/52; PULSE 78; RESP 20; TEMP 36.4; O2SAT 100
--- NOTE | 2021-11-09 16:06 | PM.PNORT ---
Progress Note: A&P Assessment and Plan (1) Closed displaced trimalleolar fracture of right ankle: Qualifiers: Encounter type: initial encounter Qualified Code(s): S82.851A - Displaced trimalleolar fracture of right lower leg, initial encounter for closed fracture Code(s): S82.851A - Displaced trimalleolar fracture of right lower leg, initial encounter for closed fracture Status: Acute Assessment and Plan: POD #7: ORIF Right Ankle Pain control. Ice. Elevate RLE. PT/OT. NWB RLE. Crutches vs. walker. Monitor splint/drainage. Splint to remain in place x2 weeks. Plan to change at outpatient follow up appointment. Plan to transition to PO Aspirin 81mg at discharge for DVT prophylaxis. Dispo: Patient with difficulty ambulating, mobility and caring for self. Required to be at home alone for periods of time. Plan for SNF placement. Authorization pending. Okay to discharge when placement available and medical stability. (2) Elbow fracture, right: Code(s): S42.401A - Unspecified fracture of lower end of right humerus, initial encounter for closed fracture Status: Acute Assessment and Plan: Recently s/p hardware removal from a right elbow fracture which was treated at [facility]. PT/OT to assist with accommodations to maintain WB status. Difficulty with walker use to maintain RLE NWB. Discussed with PT. May trial crutches today. (3) Status post hardware removal: Code(s): Z98.890 - Other specified postprocedural states Status: Acute (4) Diabetes: Code(s): E11.9 - Type 2 diabetes mellitus without complications Status: Acute Assessment and Plan: Appreciate hospitalist consult and medical management. Subjective Subjective Date/Time Seen: 11/09/21 16:06 Post Op day: 7 Principal diagnosis: Right ankle trimalleolar fracture Interval history: Slow progress with PT/OT. Plan for placement to SNF today. Pain with continued improvement. Up in chair. Review of Systems Review of Systems: All systems reviewed & are unremarkable except as noted in HPI and below Exam Const: General: comfortable and in distress mild (pain); No acute distress or confusion Orientation/consciousness: No confusion Resp: Effort & Inspection: normal respiratory effort and no audible wheezes Skin: Wounds: no wounds (Right elbow, right splint CDI ) Neuro: General: No confusion Cranial nerves: Yes Normal hearing present Extrem: Right upper extremity: elbow/forearm (Incision well approximated, sutures notes. No open areas. ), wrist normal to inspection and Extremity exam: right hand normal to inspection Right lower extremity: lower leg (Large Splint C/D/I ), ankle (Splint c/d/i ) Details: tenderness Location: of the lateral malleolus, of the medial malleolus and anteriorly and foot (moves toes, sensation intact to light touch. ) Details: vascular exam Details: dorsalis pedis pulse present and normal capillary refill and motor-sensory exam Details: light-touch normal Location: in all toes Left lower extremity: normal to inspection, ankle Details: normal ROM and foot Details: vascular exam Details: dorsalis pedis pulse present and normal capillary refill and motor-sensory exam light-touch normal in all toes; no edema Other: splint in place right lower extremity. Toes exposed. Toes with good capillary refill and good sensation to touch. Able to move toes. Objective Data Vital Signs Vital Signs: Vital Signs - 24 hr 11/08/21 20:16 11/09/21 05:23 11/09/21 09:00 Temperature 36.1 C L 36.2 C L Pulse Rate 89 79 Respiratory Rate 16 18 Blood Pressure 100/57 L 131/64 Pulse Oximetry 98 100 Oxygen Delivery Room Air 11/09/21 14:00 Temperature 36.4 C L Pulse Rate 78 Respiratory Rate 20 Blood Pressure 122/52 L Pulse Oximetry 100 Oxygen Delivery Intake/Output Intake/Output: Intake & Output 11/06/21 11/07/21 11/08/21 11/09/21 23:59 23:59 23:59 23
[2021-11-09 17:15] LABS: EDCOVIDSCREEN Negative (Negative)
[2021-11-09 17:33] LABS: Glucose Point of Care 130 mg/dl (65-105)
--- NOTE | 2021-11-10 13:44 | PM.DS ---
DS: Admitting Diagnosis Discharge Date 11/09/21 Admitting Diagnosis Right Ankle Fracture DS: Discharge Diagnosis Discharge Diagnosis (1) Closed displaced trimalleolar fracture of right ankle: Qualifiers: Encounter type: initial encounter Qualified Code(s): S82.851A - Displaced trimalleolar fracture of right lower leg, initial encounter for closed fracture Code(s): S82.851A - Displaced trimalleolar fracture of right lower leg, initial encounter for closed fracture Status: Acute Assessment and Plan: POD #7: ORIF Right Ankle Pain control. Ice. Elevate RLE. PT/OT. NWB RLE. Crutches vs. walker. Monitor splint/drainage. Splint to remain in place x2 weeks. Plan to change at outpatient follow up appointment. Plan to transition to PO Aspirin 81mg at discharge for DVT prophylaxis. Dispo: Patient with difficulty ambulating, mobility and caring for self. Required to be at home alone for periods of time. Plan for SNF placement. Authorization pending. Okay to discharge when placement available and medical stability. (2) Elbow fracture, right: Code(s): S42.401A - Unspecified fracture of lower end of right humerus, initial encounter for closed fracture Status: Acute Assessment and Plan: Recently s/p hardware removal from a right elbow fracture which was treated at [facility]. PT/OT to assist with accommodations to maintain WB status. Difficulty with walker use to maintain RLE NWB. Discussed with PT. May trial crutches today. (3) Status post hardware removal: Code(s): Z98.890 - Other specified postprocedural states Status: Acute (4) Diabetes: Code(s): E11.9 - Type 2 diabetes mellitus without complications Status: Acute Assessment and Plan: Appreciate hospitalist consult and medical management. DS: Summary Hospital Course Reason for hospitalization: Right ankle fracture Hospital Course: 51-year-old female admitted on October 31 after a fall while at work which resulted in a right ankle fracture. She underwent a right open reduction internal fixation of her trimalleolar fracture including the posterior malleolus by Dr. Mac on November 01. The patient also had recently had a hardware removal to her right elbow after a fracture which occurred 1 year ago. She was 2 weeks status post hardware removal however by an outside hospital. Patient had slow progress with physical therapy due to inability to put full weight on the right upper extremity without pain. She is nonweightbearing of the right lower extremity. The patient has a young child and her works most of the day. She did not feel that she would be comfortable to be going home alone. Physical therapy also deemed that patient would require more assistance. The patient is also a diabetic. Hospitalist service consulted during the patient's stay for medical management assistance. The patient was denied discharge to an acute rehab facility. [facility] on POD 7 and discharged after medical clearance. She will follow-up in the outpatient orthopedic clinic in approximately 1 week for a cast change. Status at Discharge Functional status at discharge: uses cane/walker Overall status at discharge: patient is progressing back to baseline Time Spent with Patient Time attestation: Total time spent providing and/or coordinating discharge services: Exam Const: General: comfortable and in distress mild (pain); No acute distress or confusion Orientation/consciousness: No confusion Resp: Effort & Inspection: normal respiratory effort and no audible wheezes Skin: Wounds: no wounds (Right elbow, right splint CDI ) Neuro: General: No confusion Cranial nerves: Yes Normal hearing present Extrem: Right upper extremity: elbow/forearm (Incision well approximated, sutures notes. No open areas. ), wrist normal to inspection and Extremity
== END 2021-11-09 17:50 | DRG 494 ==
LOC: ANHED 11-01 00:41 → ANH3MED 11-01 00:43
PROVIDERS: Nurse Practitioner; Nurse Practitioner Family; Physician Assistant; Admitting Provider Orthopaedic Surgery; Emergency Provider Emergency Medicine; PCP Physician Assistant; Visit Provider Orthopaedic Surgery
PROC: 0QHJ34Z Insertion of Internal Fixation Device into Right Fibula, Percutaneous Approach (ICD-10-PCS; principal; 2021-11-01 16:30)
DX: S82.851A Displaced trimalleolar fracture of right lower leg, initial encounter for closed fracture (principal); I10 Essential (primary) hypertension; S42.401D Unspecified fracture of lower end of right humerus, subsequent encounter for fracture with routine healing; Z98.890 Other specified postprocedural states; Z20.822 Contact with and (suspected) exposure to COVID-19; E11.9 Type 2 diabetes mellitus without complications; E78.00 Pure hypercholesterolemia, unspecified; E66.9 Obesity, unspecified; Z68.35 Body mass index [BMI] 35.0-35.9, adult; W19.XXXA Unspecified fall, initial encounter; W19.XXXD Unspecified fall, subsequent encounter
CPT/HCPCS: 27818; 36415; 73562; 73600; 73610; 80048; 80053; 81001; 82948; 83036; 85025; 85610; 85730; 87426; 93005; 96374; 96375; 97110; 97116; 97161; 97166; 97530; 97535; 97542; 99199; 99285; A9270; C1713; C1769; C9803; J0690; J1170; J1650; J1741; J1815; J2250; J2270; J2370; J2405; J2704; J3010; J3480; J7030; J7120; U0003; U0005

== ENCOUNTER 2023-10-27 22:55 | Emergency (ER) | payer OTHER, SELFPAY ==
--- NOTE | ~2023-10-27 | XR_ITS ---
AP and oblique views of the right ribs Clinical History: Pain Findings: No rib fracture is seen. Osseous alignment is anatomic. Lungs are clear, without focal cons olidation or pleural effusion. Cardiomediastinal contour is within normal limits. Soft tissues are un remarkable. Impression: No rib fracture is seen. Reviewed, dictated and finalized at [facility]. Impression: No rib fracture is seen.
[2023-10-27 22:56] VITALS: BP 141/66; PULSE 74; RESP 14; TEMP 36.4; O2SAT 100
== END 2023-10-27 23:37 | disposition left against medical advice (07) ==
PROVIDERS: Emergency Provider Emergency Medicine; PCP Physician Assistant
DX: R07.89 Other chest pain (principal)
CPT/HCPCS: 71100; 99199

== ENCOUNTER 2024-12-07 09:00 | Outpatient (RCR) | payer OTHER, SELFPAY ==
--- NOTE | 2024-10-01 10:12 | OPREHPOC ---
Outpatient Therapy Plan of Care This is a Multidisciplinary Plan of Care that may contain components documented by all disciplines (PT, OT, and ST.) PT Problem 1 PT Problem #1 Knowledge Deficit PT Goal 1 Goal / Goal Update *independent with HEP Target Visit 8 PT Problem 2 PT Problem #2 Pain PT Goal 1 Goal / Goal Update 1* pt report pain rating of 4/10 at worst of L anle/foot 2* pt report standing/walking tolerance of 4 hours Target Visit 8 PT Problem 3 PT Problem #3 Impaired Flexibility PT Goal 1 Goal / Goal Update 1* increase L ankle DF to 10' in long sitting PT Problem 4 PT Problem #4 Impaired Strength PT Goal 1 Goal / Goal Update increase strength of L ankle/foot: 1* 2 minute walking test distance of 350' to improve mobility 2* standing bilateral ankle PF x 10 reps 3* single leg standing L x 10 seconds with good stability Target Visit 8
--- NOTE | 2024-10-01 10:12 | PTOPEVAL1 ---
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 She reports it is less than initially, but limits her walking and standing time. 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 LE functional scale self rating of 64% limitation in activity level. Her history includes R ankle ORIF with pain and R knee pain. With the evaluation: she has pain and tenderness over L heel and arch of foot, and gastroc tightness; decreased strength of ankle--standing PF bilateral x 2 reps only; walking with flat foot pattern and decrease push off. Skilled PT services are indicated for modalities to decrease pain and spasms, therapeutic exercises to increase strength and flexibility of ankle and education for HEP. Plan of Care Interventions Electrical Stimulation,Gait Training,Hot Pack/Cold Pack,Manual Therapy,Neuro Re-education,Patient/ Caregiver Education,Therapeutic Activities, Therapeutic Exercise,Ultrasound,Other Other Interventions taping, dry needling PT Services Indicated Yes Treatment Frequency and 1-2x/wk for 8 visits Duration These treatments will address the objective and functional deficits as defined above. The patient will be advanced safely and appropriately in order for the patient to progress towards his/her prior level of function. Additional exercises will be introduced and as well as a comprehensive home exercise program upon discharge, if needed, ?to ensure carryover of functional gains achieved in the clinic. This treatment plan has been reviewed and agreement upon by the patient.
--- NOTE | 2024-10-26 10:46 | PCPTNOTE ---
No call no show, reason unknown. AKNayely
--- NOTE | 2024-11-09 11:51 | OPREHPOC ---
Outpatient Therapy Plan of Care This is a Multidisciplinary Plan of Care that may contain components documented by all disciplines (PT, OT, and ST.) PT Problem 1 PT Problem #1 Knowledge Deficit PT Goal 1 Goal / Goal Update *independent with HEP 11-09-24 progress goal met continue to progress education and HEP Target Visit 14 PT Problem 2 PT Problem #2 Pain PT Goal 1 Goal / Goal Update 1* pt report pain rating of 4/10 at worst of L anle/foot 2* pt report standing/walking tolerance of 4 hours 11-09-24 progress goal 1 met; #2 is 2-3 hours update goal 1: 2/10 pain at worst Target Visit 14 PT Problem 3 PT Problem #3 Impaired Flexibility PT Goal 1 Goal / Goal Update 1* increase L ankle DF to 10' in long sitting 11-09-24 progress goal not met continue towards Target Visit 14 PT Problem 4 PT Problem #4 Impaired Strength PT Goal 1 Goal / Goal Update increase strength of L ankle/foot: 1* 2 minute walking test distance of 350' to improve mobility 2* standing bilateral ankle PF x 10 reps 3* single leg standing L x 10 seconds with good stability 11-09-24 progress goals 1,2 met; #3 is 5 seconds continue towards goal #3 Target Visit 14
--- NOTE | 2024-11-09 11:52 | PTOPPROG ---
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 Compared to the initial evaluation, she has improved in all areas, except reported tolerance with standing and walking is the same at 2-3 hours and active DF is 5'; today improved with: pain reported range of 1-4/10; self assessment with LE functional scale rating of 39% limitation in activity level; 2 minute walking test distance of 495'; improved gait pattern with good heel strike and push off; single leg standing 5 seconds and bilateral PF x 20 reps. Education for HEP and self care. The goals were partially met. Continue PT. Plan of Care Interventions Electrical Stimulation,Gait Training,Hot Pack/Cold Pack,Manual Therapy,Neuro Re-education,Patient/ Caregiver Education,Therapeutic Activities, Therapeutic Exercise,Ultrasound,Other Other Interventions taping, dry needling PT Services Indicated Yes Treatment Frequency and 1-2x/wk for 6 visits Duration These treatments will address the objective and functional deficits as defined above. The patient will be advanced safely and appropriately in order for the patient to progress towards his/her prior level of function. Additional exercises will be introduced and as well as a comprehensive home exercise program upon discharge, if needed, ?to ensure carryover of functional gains achieved in the clinic. This treatment plan has been reviewed and agreement upon by the patient.
--- NOTE | 2024-12-07 09:55 | OPREHPOC ---
Outpatient Therapy Plan of Care This is a Multidisciplinary Plan of Care that may contain components documented by all disciplines (PT, OT, and ST.) PT Problem 1 PT Problem #1 Knowledge Deficit PT Goal 1 Goal / Goal Update *independent with HEP 11-09-24 progress goal met continue to progress education and HEP 12-07-24 d/c goals met Target Visit 14 Progress Met PT Problem 2 PT Problem #2 Pain PT Goal 1 Goal / Goal Update 1* pt report pain rating of 4/10 at worst of L ankle/foot 2* pt report standing/walking tolerance of 4 hours 11-09-24 progress goal 1 met; #2 is 2-3 hours update goal 1: 2/10 pain at worst 12-07-24 d/c goals not met: #1- 4/10 and #2- 2-3 hours Target Visit 14 Progress Not Met PT Problem 3 PT Problem #3 Impaired Flexibility PT Goal 1 Goal / Goal Update 1* increase L ankle DF to 10' in long sitting 11-09-24 progress goal not met continue towards 12-07-24 d/c goal met Target Visit 14 Progress Met PT Problem 4 PT Problem #4 Impaired Strength PT Goal 1 Goal / Goal Update increase strength of L ankle/foot: 1* 2 minute walking test distance of 350' to improve mobility 2* standing bilateral ankle PF x 10 reps 3* single leg standing L x 10 seconds with good stability 11-09-24 progress goals 1,2 met; #3 is 5 seconds continue towards goal #3 12-07-24 d/c goals met Target Visit 14 Progress Met
--- NOTE | 2024-12-07 09:55 | PTOPDC ---
Assessment and note entered by Katherin Phillip, PT Assessment Status Discharge Other ICD-10 Condition Codes ( plantar fasciitis M72.2 L PT) Onset about 1 year ago Subjective Information L ankle is better, therapy has really helped; now the R one is giving me pain- gave me cortisone shot and it is better; going to have a CT scan of it; have appt for orthotics in few days; doing the exercises; fell on the wet grass the other night, bruise on L [place]; agree to stop therapy; Reported Pain Level Pain Score Self Report Additional Pain Score Comments pain range in the past week 2-4/10; little pain at medial heel; increase pain: after few hours of working/ standing, start to feel more pain decrease pain: stretch, ice, soak foot in epson salt Assessment PT Clinical Summary Marleen has received 14 PT sessions for L ankle/heel pain. With today's assessment, compared to last assessment: pain rating from 1-4/10 to 2-4/10; area of pain from arch of foot, top of foot, gastroc tendon and heel, to pain at medial aspect of heel; reported standing/walking tolerance is the same at 2-3 hours before increase in pain; increase active ankle DF in long sitting from 5' to 10'; increase strength and WB tolerance with single leg standing time from 5 to 11 seconds; 2 minute walking test distance decreased from 495' to 450'; walking pattern is with good heel strike , step length and weight shift; education completed for HEP and pain control. She reports more pain in her R ankle, recently received cortisone injection and going to have imaging of R. This effected her functional mobility score with rating from 39 to 46% limitation in activity level. The goals were achieved, except reported standing/ walking tolerance. Discharge PT services. She is to continue with her HEP. Plan of Care PT Services Indicated No
== END 2024-12-10 12:36 | disposition home or self-care (01) ==
LOC: ANHPT 09:00
PROVIDERS: PCP Physician Assistant; Visit Provider Podiatrist Foot & Ankle Surgery
DX: M72.2 Plantar fascial fibromatosis (principal)
CPT/HCPCS: 97035; 97110; 97140; 97161; 97530